=== PATIENT | male | born 1955 | race American Indian/Alaskan Native ===

== ENCOUNTER 2017-01-29 18:25 | Emergency (ER) | payer OTHER ==
--- NOTE | 2017-01-29 20:52 | EDM.PDOC ---
ED HPI GI/ABDOMINAL - General Chief Complaint: Abdominal Pain Stated Complaint: [facility] REF FOR CT SCAN; [phone] Time Seen by Provider: 01/29/17 20:48 Source of Information: Reports: Patient History Limitations: Reports: No limitations - History of Present Illness INITIAL COMMENTS - FREE TEXT/NARRATIVE: 2 weeks h/o RUQ right side pain on off with nausea everytime he eats. saw Dr Jeffries who ordered some labs but were sent-out tests then told to get labs @ [facility] which he did but was ref' here for CAT. - Related Data Allergies/ADRs: Allergies Allergy/AdvReac Type Severity Reaction Status Date / Time No Known Allergies Allergy Verified 01/29/17 19:32 Home Meds: Home Meds Ezetimibe [Zetia] 1 tab PO DAILY 06/30/15 [History] Metoprolol Tartrate 100 mg PO BID 06/30/15 [History] Pioglitazone [Actos] 45 mg PO DAILY 06/30/15 [History] Ramipril [Altace] 1 tab PO BID 06/30/15 [History] Triamterene/Hydrochlorothiazid [Triamterene-HCTZ 37.5-25 MG] 1 tab PO DAILY [History] Warfarin [Coumadin] 1 tab PO DAILY 06/30/15 [History] atorvaSTATin Calcium [Atorvastatin Calcium] 1 tab PO DAILY 06/30/15 [History] glipiZIDE [Glipizide] 1 tab PO BID 06/30/15 [History] metFORMIN [Glucophage] 1 tab PO BID 06/30/15 [History] Aspirin [Adult Low Dose Aspirin EC] 1 tab PO DAILY 01/29/17 [History] Cholecalciferol (Vitamin D3) [Vitamin D3] 2 tab PO DAILY 01/29/17 [History] Fenofibric Acid (Choline) [Fenofibric Acid] 1 cap PO DAILY 01/29/17 [History] Multivitamin [Daily Multiple Vitamin] 1 tab PO DAILY 01/29/17 [History] amLODIPine [Norvasc] 1 tab PO BID 01/29/17 [History] Past Medical History Cardiovascular History: Reports: Aneurysm, Heart valve replacement, High cholesterol, Hypertension, Pacemaker Endocrine/Metabolic History: Reports: Diabetes, type II Hematologic History: Reports: Anticoagulation therapy - Past Surgical History Cardiovascular Surgical History: Reports: Aneurysm, Valve replacement GI Surgical History: Reports: Appendectomy Musculoskeletal Surgical History: Reports: Other (see below) Other Musculoskeletal Surgeries/Procedures:: right knee surgery Social & Family History - Family History Family Medical History: Noncontributory - Tobacco Use Smoking Status *Q: Former Smoker Years of Tobacco use: 40 Used Tobacco, but Quit: No Month Tobacco Last Used: june Second Hand Smoke Exposure: No - Caffeine Use Caffeine Use: Reports: Coffee, Soda - Recreational Drug Use Recreational Drug Use: No ED ROS GENERAL - Review of Systems Review Of Systems: ROS reveals no pertinent complaints other than HPI. ED EXAM, GI/ABD - Physical Exam Exam: See Below Exam Limited By: Uncooperative General Appearance: alert, mild distress, other (distraught) Ears: hearing grossly normal Throat/Mouth: Normal voice, No airway compromise Head: atraumatic Neck: non-tender, full range of motion Respiratory/Chest: no respiratory distress Cardiovascular: regular rate, rhythm GI/Abdominal: soft, hyperactive bowel sounds, tenderness, other (minimal discomfort at right side). No: distention, guarding, rebound, rigidity, mass Neurological: alert, oriented, normal cognition, normal gait, no motor/sensory deficits Psychiatric: normal affect, normal mood Skin Exam: Warm, Dry Lymphatic: no adenopathy Course - Vital Signs Last Recorded V/S: Last Vital Signs Temp 35.8 C 01/29/17 21:44 Pulse 60 01/29/17 21:44 Resp 18 01/29/17 21:44 BP 142/56 H 01/29/17 21:44 Pulse Ox 99 01/29/17 21:44 - Orders/Labs/Meds Orders: Active Orders 24 hr Category Date Time Status Piperacillin/Tazobactam [Zosyn] 3.375 gm Med 01/29/17 23:16 Ordered Sodium Chloride 0.9% [Normal Saline] 100 ml IV ONETIME Medication Orders Piperacillin Sod/Tazobactam (Sod 3.375 gm/ Sodium Chloride) 100 mls @ 200 mls/ hr IV ONETIME ONE Stop: 01/29/17 23:45 Labs: Laboratory Tests 01/29/17 01/29/17 01/29/17 Range/Units 20:45 20:45 20:45 WBC 9.7 (5.0-10.0) 10^3/uL RBC 3.96 L (4.6-6.2) 10^6/uL Hgb 11.6 L (14.0-18.0) g/dL Hct 35.9 L (40.0-54.0) % MCV 90.7 (80-100) fL MCH 29.3 (27.0-34.0) pg MCHC 32.3 L (33.0-35.0) g/dL Plt Count 403 (150-450) 10^3/uL Neut % (Auto) 72.3 (42.2-75.2) % Lymph % (Auto) 15.5 L (20.5-50.1) % [place] % (Auto) 10.5 H (2-8) % Eos % (Auto) 1.4 (1.0-3.0) % Baso % (Auto) 0.3 (0.0-1.0) % PT 90.8 H (9.0-12.0) SEC INR 9.0 H* (0.9-1.2) Sodium 130 L (135-145) mmol/L Potassium 4.1 (3.6-5.0) mmol/L Chloride 97 L (101-111) mmol/L Carbon Dioxide 25.0 (21.0-31.0) mmol/L Anion Gap 12.1 BUN 20 H (7-18) mg/dL Creatinine 1.5 H (0.6-1.3) mg/dL Est Cr Clr Drug Dosing 51.72 mL/min Estimated GFR (MDRD) 48 BUN/Creatinine Ratio 13.33 Glucose 377 H (74-105) mg/dL Calcium 9.3 (8.4-10.2) mg/dl Total Bilirubin 0.4 (0.2-1.0) mg/dL AST 21 (10-42) IU/L ALT 18 (10-60) IU/L Alkaline Phosphatase 66 (42-121) IU/L Total Protein 7.2 (6.7-8.2) g/dl Albumin 3.2 (3.2-5.5) g/dl Globulin 4.0 Albumin/Globulin Ratio 0.80 Amylase 51 (28-100) U/L Lipase 33 (22-51) U/L Urine Color (YELLOW) Urine Appearance (CLEAR) Urine pH (5.0-9.0) Ur Specific [place] (1.005-1.030) Urine Protein (NEGATIVE) Urine Glucose (UA) (NEGATIVE) Urine Ketones (NEGATIVE) Urine Occult Blood (NEGATIVE) Urine Nitrite (NEGATIVE) Urine Bilirubin (NEGATIVE) Urine Urobilinogen (0.2-1.0) mg/dL Ur Leukocyte Esterase (NEGATIVE) Urine RBC /HPF Urine WBC (0-5/HPF) /HPF Ur Epithelial Cells /HPF Amorphous Sediment (0/HPF) /HPF Urine Bacteria (0-FEW/HPF) /HPF Urine Mucus /LPF 01/29/17 Range/Units 21:15 WBC (5.0-10.0) 10^3/uL RBC (4.6-6.2) 10^6/uL Hgb (14.0-18.0) g/dL Hct (40.0-54.0) % MCV (80-100) fL MCH (27.0-34.0) pg MCHC (33.0-35.0) g/dL Plt Count (150-450) 10^3/uL Neut % (Auto) (42.2-75.2) % Lymph % (Auto) (20.5-50.1) % [place] % (Auto) (2-8) % Eos % (Auto) (1.0-3.0) % Baso % (Auto) (0.0-1.0) % PT (9.0-12.0) SEC INR (0.9-1.2) Sodium (135-145) mmol/L Potassium (3.6-5.0) mmol/L Chloride (101-111) mmol/L Carbon Dioxide (21.0-31.0) mmol/L Anion Gap BUN (7-18) mg/dL Creatinine (0.6-1.3) mg/dL Est Cr Clr Drug Dosing mL/min Estimated GFR (MDRD) BUN/Creatinine Ratio Glucose (74-105) mg/dL Calcium (8.4-10.2) mg/dl Total Bilirubin (0.2-1.0) mg/dL AST (10-42) IU/L ALT (10-60) IU/L Alkaline Phosphatase (42-121) IU/L Total Protein (6.7-8.2) g/dl Albumin (3.2-5.5) g/dl Globulin Albumin/Globulin Ratio Amylase (28-100) U/L Lipase (22-51) U/L Urine Color Yellow (YELLOW) Urine Appearance Slightly cloudy (CLEAR) Urine pH 5.0 (5.0-9.0) Ur Specific [place] 1.015 (1.005-1.030) Urine Protein 100 H (NEGATIVE) Urine Glucose (UA) 500 H (NEGATIVE) Urine Ketones Negative (NEGATIVE) Urine Occult Blood Moderate H (NEGATIVE) Urine Nitrite Negative (NEGATIVE) Urine Bilirubin Negative (NEGATIVE) Urine Urobilinogen 0.2 (0.2-1.0) mg/dL Ur Leukocyte Esterase Negative (NEGATIVE) Urine RBC 5-10 H /HPF Urine WBC 0-5 (0-5/HPF) /HPF Ur Epithelial Cells Rare /HPF Amorphous Sediment Few (0/HPF) /HPF Urine Bacteria Rare (0-FEW/HPF) /HPF Urine Mucus Few H /LPF Meds: Medications Generic Name Dose Route Start Last Admin Trade Name Freq PRN Reason Stop Dose Admin Piperacillin Sod/Tazobactam 100 mls @ 200 mls/hr 01/29/17 23:16 Sod 3.375 gm/ Sodium Chloride IV 01/29/17 23:45 ONETIME ONE - Re-Assessments/Exams Free Text/Narrative Re-Assessment/Exam: 01/29/17 23:17 results discussed with Pt and case discussed with Dr Vora @ who kindly accepted Pt. Departure - Departure Time of Disposition: 23:18 Disposition: DC/Tfer to Acute Hospital 02 Condition: good Clinical Impression: Intra-abdominal abscess, Elevated INR Forms: Interfacility Transfer EMTALA - My Orders Last 24 Hours: My Active Orders 01/29/17 23:16 Piperacillin/Tazobactam [Zosyn] 3.375 gm Sodium Chloride 0.9% [Normal Saline] 100 ml IV ONETIME - Assessment/Plan Last 24 Hours: My Active Orders 01/29/17 23:16 Piperacillin/Tazobactam [Zosyn] 3.375 gm Sodium Chloride 0.9% [Normal Saline] 100 ml IV ONETIME
[2017-01-29] MEDS ORDERED: Piperacillin/Tazobactam 3.375 GM in Sodium Chloride 0.9% 100 ML IV ONE (23:16)
[2017-01-29 23:54] VITALS: BP 150/63
== END 2017-01-29 23:45 ==
LOC: DL.ED 18:25
DX: K65.1 Peritoneal abscess (principal); E11.9 Type 2 diabetes mellitus without complications; E78.00 Pure hypercholesterolemia, unspecified; Z87.891 Personal history of nicotine dependence; Z79.899 Other long term (current) drug therapy
CPT/HCPCS: 36415; 74176; 80053; 81001; 82150; 83690; 85025; 85610; 96365; 99285; J2543; J7050

== ENCOUNTER 2017-02-22 21:50 | Emergency (ER) | payer OTHER ==
[2017-02-22] MEDS ORDERED: Ondansetron 4 MG/2 ML SDV IV ONE (22:20)
[2017-02-22] MEDS ORDERED: HYDROmorphone 1 MG/ML Syringe IVPUSH ONE ×2 (22:21→23:38)
[2017-02-22] MEDS ORDERED: Iopamidol 612 MG/ML 75 ML Bottle IVPUSH ONE (23:14)
[2017-02-22] MEDS ORDERED: Sodium Chloride 0.9% 1,000 ML IV ONE (23:38)
[2017-02-23] MEDS ORDERED: Piperacillin/Tazobactam 3.375 GM in Sodium Chloride 0.9% 100 ML IV ONE (00:15)
[2017-02-23] MEDS ORDERED: fentaNYL 100 MCG/2 ML SDV IVPUSH ONE (00:36)
--- NOTE | 2017-02-23 00:47 | EDM.PDOC ---
ED HPI GI/ABDOMINAL - General Chief Complaint: Abdominal Pain Stated Complaint: STOMACH Time Seen by Provider: 02/22/17 21:55 Source of Information: Reports: Patient History Limitations: Reports: No limitations - History of Present Illness INITIAL COMMENTS - FREE TEXT/NARRATIVE: c/o lower abdominal pain greater right than left at present, similar on 01/29 and pain more on left side. Started as ache this am, more severe this antwan, rated 7/10/. Last BM yesterday, soft yellow, nausea no vomiting, feels bloated. pain constaant with shooting pains at times. Hx elevated INR 9.4 with last tx. Last check one week ago 2.x. Noted coumadin 5mg daily last took this am. Was discharged home on antibiotic and completed medication. Location: generalized (lower) Quality: Reports: ache, fullness, stabbing Severity: severe Worsens with: Reports: palpation, other (movement) Associated Symptoms: Reports: nausea/vomiting - Related Data Allergies/ADRs: Allergies Allergy/AdvReac Type Severity Reaction Status Date / Time No Known Allergies Allergy Verified 02/22/17 21:59 Home Meds: Home Meds Ezetimibe [Zetia] 1 tab PO DAILY 06/30/15 [History] Metoprolol Tartrate 100 mg PO BID 06/30/15 [History] Pioglitazone [Actos] 45 mg PO DAILY 06/30/15 [History] Ramipril [Altace] 1 tab PO BID 06/30/15 [History] Triamterene/Hydrochlorothiazid [Triamterene-HCTZ 37.5-25 MG] 1 tab PO DAILY [History] Warfarin [Coumadin] 1 tab PO DAILY 06/30/15 [History] atorvaSTATin Calcium [Atorvastatin Calcium] 1 tab PO DAILY 06/30/15 [History] glipiZIDE [Glipizide] 1 tab PO BID 06/30/15 [History] metFORMIN [Glucophage] 1 tab PO BID 06/30/15 [History] Aspirin [Adult Low Dose Aspirin EC] 1 tab PO DAILY 01/29/17 [History] Cholecalciferol (Vitamin D3) [Vitamin D3] 2 tab PO DAILY 01/29/17 [History] Fenofibric Acid (Choline) [Fenofibric Acid] 1 cap PO DAILY 01/29/17 [History] Multivitamin [Daily Multiple Vitamin] 1 tab PO DAILY 01/29/17 [History] amLODIPine [Norvasc] 1 tab PO BID 01/29/17 [History] Past Medical History HEENT History: Reports: Impaired vision Cardiovascular History: Reports: Aneurysm, Heart valve replacement, High cholesterol, Hypertension, Pacemaker Endocrine/Metabolic History: Reports: Diabetes, type II Hematologic History: Reports: Anticoagulation therapy - Past Surgical History Cardiovascular Surgical History: Reports: Aneurysm, Valve replacement GI Surgical History: Reports: Appendectomy Musculoskeletal Surgical History: Reports: Other (see below) Other Musculoskeletal Surgeries/Procedures:: right knee surgery Social & Family History - Family History Family Medical History: Noncontributory - Tobacco Use Smoking Status *Q: Former Smoker Years of Tobacco use: 40 Used Tobacco, but Quit: Yes Month Tobacco Last Used: 4 Second Hand Smoke Exposure: No - Caffeine Use Caffeine Use: Reports: Coffee - Recreational Drug Use Recreational Drug Use: No ED ROS GENERAL - Review of Systems Review Of Systems: See Below Constitutional: Reports: no symptoms HEENT: Reports: No symptoms Respiratory: Reports: No Symptoms Cardiovascular: Reports: No symptoms Endocrine: Reports: no symptoms GI/Abdominal: Reports: Abdominal pain, Distension, Nausea. Denies: Black stool , Bloody stool, Diarrhea, Vomiting : Reports: no symptoms Musculoskeletal: Reports: no symptoms Skin: Reports: no symptoms Neurological: Reports: No Symptoms ED EXAM, GI/ABD - Physical Exam Exam: See Below Exam Limited By: No limitations General Appearance: alert, moderate distress Eyes: bilateral: EOMI Ears: normal external exam Nose: normal inspection Throat/Mouth: Normal inspection, Normal lips, Normal oropharynx Head: atraumatic, normocephalic Neck: normal inspection Respiratory/Chest: no respiratory distress, lungs clear, normal breath sounds Cardiovascular: normal peripheral pulses, regular rate, rhythm GI/Abdominal: soft, hypoactive bowel sounds, tenderness, guarding, hernia ( right mid abdomen). No: tympanic bowel sounds, rebound Back Exam: full range of motion Extremities: normal inspection Neurological: alert, oriented, normal cognition, no motor/sensory deficits Psychiatric: normal affect, normal mood Skin Exam: Warm, Dry, Intact, Normal color, No rash Course - Vital Signs Last Recorded V/S: Last Vital Signs Temp 99.7 F 02/23/17 00:54 Pulse 70 02/23/17 00:54 Resp 20 02/23/17 00:54 BP 122/48 L 02/23/17 00:54 Pulse Ox 96 02/23/17 00:54 - Orders/Labs/Meds Labs: Laboratory Tests 02/22/17 02/22/17 02/22/17 Range/Units 22:30 22:32 22:32 WBC 14.9 H (5.0-10.0) 10^3/uL RBC 3.86 L (4.6-6.2) 10^6/uL Hgb 11.6 L (14.0-18.0) g/dL Hct 35.7 L (40.0-54.0) % MCV 92.5 (80-100) fL MCH 30.1 (27.0-34.0) pg MCHC 32.5 L (33.0-35.0) g/dL Plt Count 315 (150-450) 10^3/uL Neut % (Auto) 86.5 H (42.2-75.2) % Lymph % (Auto) 8.0 L (20.5-50.1) % [place] % (Auto) 4.9 (2-8) % Eos % (Auto) 0.5 L (1.0-3.0) % Baso % (Auto) 0.1 (0.0-1.0) % PT 67.2 H (9.0-12.0) SEC INR 6.7 H* (0.9-1.2) Sodium (135-145) mmol/L Potassium (3.6-5.0) mmol/L Chloride (101-111) mmol/L Carbon Dioxide (21.0-31.0) mmol/L Anion Gap BUN (7-18) mg/dL Creatinine (0.6-1.3) mg/dL Est Cr Clr Drug Dosing mL/min Estimated GFR (MDRD) BUN/Creatinine Ratio Glucose (74-105) mg/dL Lactic Acid (0.5-2.2) mmol/L Calcium (8.4-10.2) mg/dl Total Bilirubin (0.2-1.0) mg/dL AST (10-42) IU/L ALT (10-60) IU/L Alkaline Phosphatase (42-121) IU/L C-Reactive Protein (0.0-1.3) mg/dL Total Protein (6.7-8.2) g/dl Albumin (3.2-5.5) g/dl Globulin Albumin/Globulin Ratio Amylase (28-100) U/L Lipase (22-51) U/L Urine Color Yellow (YELLOW) Urine Appearance Clear (CLEAR) Urine pH 5.0 (5.0-9.0) Ur Specific [place] 1.025 (1.005-1.030) Urine Protein >=300 H (NEGATIVE) Urine Glucose (UA) Negative (NEGATIVE) Urine Ketones Negative (NEGATIVE) Urine Occult Blood Moderate H (NEGATIVE) Urine Nitrite Negative (NEGATIVE) Urine Bilirubin Negative (NEGATIVE) Urine Urobilinogen 0.2 (0.2-1.0) mg/dL Ur Leukocyte Esterase Negative (NEGATIVE) Urine RBC 5-10 H /HPF Urine WBC 0-5 (0-5/HPF) /HPF Ur Epithelial Cells Rare /HPF Amorphous Sediment Few (0/HPF) /HPF Urine Bacteria Few (0-FEW/HPF) /HPF 02/22/17 02/22/17 02/22/17 Range/Units 22:32 22:32 22:32 WBC (5.0-10.0) 10^3/uL RBC (4.6-6.2) 10^6/uL Hgb (14.0-18.0) g/dL Hct (40.0-54.0) % MCV (80-100) fL MCH (27.0-34.0) pg MCHC (33.0-35.0) g/dL Plt Count (150-450) 10^3/uL Neut % (Auto) (42.2-75.2) % Lymph % (Auto) (20.5-50.1) % [place] % (Auto) (2-8) % Eos % (Auto) (1.0-3.0) % Baso % (Auto) (0.0-1.0) % PT (9.0-12.0) SEC INR (0.9-1.2) Sodium 135 (135-145) mmol/L Potassium 4.2 (3.6-5.0) mmol/L Chloride 105 (101-111) mmol/L Carbon Dioxide 22.0 (21.0-31.0) mmol/L Anion Gap 12.2 BUN 19 H (7-18) mg/dL Creatinine 1.3 (0.6-1.3) mg/dL Est Cr Clr Drug Dosing 57.73 mL/min Estimated GFR (MDRD) 56 BUN/Creatinine Ratio 14.61 Glucose 158 H (74-105) mg/dL Lactic Acid 1.7 (0.5-2.2) mmol/L Calcium 9.4 (8.4-10.2) mg/dl Total Bilirubin 0.6 (0.2-1.0) mg/dL AST 29 (10-42) IU/L ALT 22 (10-60) IU/L Alkaline Phosphatase 43 (42-121) IU/L C-Reactive Protein < 0.5 (0.0-1.3) mg/dL Total Protein 7.1 (6.7-8.2) g/dl Albumin 3.8 (3.2-5.5) g/dl Globulin 3.3 Albumin/Globulin Ratio 1.15 Amylase 76 (28-100) U/L Lipase 45 (22-51) U/L Urine Color (YELLOW) Urine Appearance (CLEAR) Urine pH (5.0-9.0) Ur Specific [place] (1.005-1.030) Urine Protein (NEGATIVE) Urine Glucose (UA) (NEGATIVE) Urine Ketones (NEGATIVE) Urine Occult Blood (NEGATIVE) Urine Nitrite (NEGATIVE) Urine Bilirubin (NEGATIVE) Urine Urobilinogen (0.2-1.0) mg/dL Ur Leukocyte Esterase (NEGATIVE) Urine RBC /HPF Urine WBC (0-5/HPF) /HPF Ur Epithelial Cells /HPF Amorphous Sediment (0/HPF) /HPF Urine Bacteria (0-FEW/HPF) /HPF Meds: Medications Discontinued Medications Generic Name Dose Route Start Last Admin Trade Name Gilda PRN Reason Stop Dose Admin Fentanyl 50 mcg 02/23/17 00:36 02/23/17 00:51 Sublimaze IVPUSH 02/23/17 00:37 50 mcg ONETIME ONE Administration Hydromorphone HCl 1 mg 02/22/17 22:21 02/22/17 22:26 Dilaudid IVPUSH 02/22/17 22:22 1 mg ONETIME ONE Administration Hydromorphone HCl 1 mg 02/22/17 23:38 02/22/17 23:42 Dilaudid IVPUSH 02/22/17 23:39 1 mg ONETIME ONE Administration Sodium Chloride 1,000 mls @ 500 mls/hr 02/22/17 23:38 02/22/17 23:53 Normal Saline IV 02/23/17 01:37 500 mls/hr .BOLUS ONE Administration Piperacillin Sod/Tazobactam 100 mls @ 200 mls/hr 02/23/17 00:15 02/23/17 00: 27 Sod 3.375 gm/ Sodium Chloride IV 02/23/17 00:44 200 mls/hr ONETIME ONE Administration Vancomycin HCl 1.25 gm/ Sodium 250 mls @ 167 mls/hr 02/23/17 00:28 02/23/17 01:01 Chloride IV 02/23/17 01:57 167 mls/hr ONETIME ONE Administration Iopamidol 75 ml 02/22/17 23:14 02/22/17 23:20 Isovue-300 (61%) IVPUSH 02/22/17 23:15 75 ml ONETIME ONE Administration Ondansetron HCl 4 mg 02/22/17 22:20 02/22/17 22:26 Zofran IV 02/22/17 22:21 4 mg ONETIME ONE Administration - Radiology Interpretation Free Text/Narrative:: CT mesenteric abscess, smaller 2cm in comparison to previous on 01/29 of 2.5 cm - Re-Assessments/Exams Free Text/Narrative Re-Assessment/Exam: 02/23/17 00:49 minimal improvement of pain with 2mg dilaudid. No vomiting. Dr. Guzman TC consult regarding patient, accepting of transfer for further management mesenteric abscess and elevated INR. Zosyn and vancomycin prior to tx. Departure - Departure Time of Disposition: 01:10 Disposition: DC/Tfer to Acute Hospital 02 Condition: fair Clinical Impression: Mesenteric abscess, Elevated INR, Chronic anticoagulation Abdominal pain Qualifiers: Abdominal location: lower abdomen, unspecified Qualified Code(s): R10.30 - Lower abdominal pain, unspecified Referrals: Avel Farrell [Primary Care Provider] - Forms: ED Department Discharge
[2017-02-23 00:54] VITALS: BP 122/48
== END 2017-02-23 01:10 ==
LOC: DL.ED 21:50
DX: K65.1 Peritoneal abscess (principal); R79.1 Abnormal coagulation profile; R10.30 Lower abdominal pain, unspecified; E78.00 Pure hypercholesterolemia, unspecified; E11.9 Type 2 diabetes mellitus without complications; Z87.891 Personal history of nicotine dependence; Z79.01 Long term (current) use of anticoagulants; Z79.82 Long term (current) use of aspirin; Z79.899 Other long term (current) drug therapy; Z95.2 Presence of prosthetic heart valve
CPT/HCPCS: 36415; 74177; 80053; 81001; 82150; 83605; 83690; 85025; 85610; 86140; 87040; 96361; 96365; 96375; 99285; J1170; J2405; J2543; J3010; J3370; J7030; J7050; Q9967

== ENCOUNTER 2020-03-24 14:30 | Emergency (ER) | payer BC, OTHER ==
[2020-03-24 15:09] VITALS: BP 152/64; PULSE 62
--- NOTE | 2020-03-24 15:35 | EDM.PDOC ---
Scribed by Tamra Reilly 03/24/20 1510 for Lucy Martinez NP ED HPI GENERAL MEDICAL PROBLEM - General Chief Complaint: General Stated Complaint: refill on meds Time Seen by Provider: 03/24/20 15:03 Source of Information: Reports: Patient, RN, RN Notes Reviewed History Limitations: Reports: No Limitations - History of Present Illness INITIAL COMMENTS - FREE TEXT/NARRATIVE: Patient presents to ER with complaint of running out of his Coumadin. He ran out on . Had INR drawn on 03/21/20 and it was 2.4. Refill was sent to [facility]. The patient forgot to pick it up. He has been on Coumadin since 1999 when he had a valve replacement. Onset: Gradual Severity: Mild Improves with: Reports: None Worsens with: Reports: None Associated Symptoms: Reports: No Other Symptoms - Related Data Allergies Allergy/AdvReac Type Severity Reaction Status Date / Time No Known Allergies Allergy Verified 03/24/20 15:02 Home Meds: Home Meds Ezetimibe [Zetia] 10 mg PO DAILY 06/30/15 [History] Metoprolol Tartrate 50 mg PO DAILY 06/30/15 [History] Pioglitazone [Actos] 45 mg PO DAILY 06/30/15 [History] Ramipril [Altace] 10 mg PO BID 06/30/15 [History] Triamterene/Hydrochlorothiazid [Triamterene-HCTZ 37.5-25 MG] 1 tab PO DAILY [History] Warfarin [Coumadin] 6 mg PO DAILY 06/30/15 [History] atorvaSTATin Calcium [Atorvastatin Calcium] 80 mg PO DAILY 06/30/15 [History] glipiZIDE [Glipizide] 10 tab PO BID 06/30/15 [History] metFORMIN [Glucophage] 1,000 tab PO BID 06/30/15 [History] Aspirin [Adult Low Dose Aspirin EC] 81 mg PO DAILY 01/29/17 [History] Cholecalciferol (Vitamin D3) [Vitamin D3] 2 tab PO DAILY 01/29/17 [History] Fenofibric Acid (Choline) [Fenofibric Acid] 1 cap PO DAILY 01/29/17 [History] Multivitamin [Daily Multiple Vitamin] 1 tab PO DAILY 01/29/17 [History] amLODIPine [Norvasc] 5 mg PO BID 01/29/17 [History] Alogliptin Benzoate [Alogliptin] 25 mg PO DAILY 03/24/20 [History] Past Medical History HEENT History: Reports: Impaired Vision Cardiovascular History: Reports: Aneurysm, Heart Valve Replacement, High Cholesterol, Hypertension, Pacemaker Endocrine/Metabolic History: Reports: Diabetes, Type II Hematologic History: Reports: Anticoagulation Therapy - Past Surgical History Cardiovascular Surgical History: Reports: Aneurysm, Valve Replacement GI Surgical History: Reports: Appendectomy Musculoskeletal Surgical History: Reports: Other (See Below) Social & Family History - Family History Family Medical History: Noncontributory - Caffeine Use Caffeine Use: Reports: Coffee ED ROS GENERAL - Review of Systems Review Of Systems: Comprehensive ROS is negative, except as noted in HPI. ED EXAM, GENERAL - Physical Exam Exam: See Below Exam Limited By: No Limitations General Appearance: Alert, WD/WN, No Apparent Distress Eye Exam: Bilateral Eye: EOMI, Normal Inspection, PERRL Ears: Normal External Exam, Normal Canal, Hearing Grossly Normal, Normal TMs Nose: Normal Inspection, Normal Mucosa, No Blood Throat/Mouth: Normal Inspection, Normal Lips, Normal Teeth, Normal Gums, Normal Oropharynx, Normal Voice, No Airway Compromise Head: Atraumatic, Normocephalic Neck: Normal Inspection, Supple, Non-Tender, Full Range of Motion Respiratory/Chest: No Respiratory Distress, Lungs Clear, Normal Breath Sounds, No Accessory Muscle Use, Chest Non-Tender Cardiovascular: Other (valve "click") GI/Abdominal: Normal Bowel Sounds, Soft, Non-Tender, No Organomegaly, No Distention, No Abnormal Bruit, No Mass (Male) Exam: Deferred Rectal (Males) Exam: Deferred Back Exam: Normal Inspection, Full Range of Motion, NT Extremities: Normal Inspection, Normal Range of Motion, Non-Tender, Normal Capillary Refill, No Pedal Edema Neurological: Alert, Oriented, CN II-XII Intact, Normal Cognition, Normal Gait, Normal Reflexes, No Motor/Sensory Deficits Psychiatric: Normal Affect, Normal Mood Skin Exam: Warm, Dry, Intact, Normal Color, No Rash Lymphatic: No Adenopathy Course - Vital Signs Last Recorded V/S: Last Vital Signs Temp 97.5 F 03/24/20 15:00 Pulse 62 03/24/20 15:00 Resp 16 03/24/20 15:00 BP 152/64 H 03/24/20 15:00 Pulse Ox 97 03/24/20 15:00 Departure - Departure Time of Disposition: 15:09 Disposition: Home, Self-Care 01 Condition: Good Clinical Impression: Anticoagulant long-term use - Discharge Information *PRESCRIPTION DRUG MONITORING PROGRAM REVIEWED*: No *COPY OF PRESCRIPTION DRUG MONITORING REPORT IN PATIENT ABIODUN: No Instructions: Vitamin K Foods and Warfarin, Warfarin Coagulopathy Forms: ED Department Discharge Additional Instructions: Pick prescription when able next week Take medication as prescribed by your primary care provider Sepsis Event Note - Focused Exam Vital Signs: Vital Signs Temp Pulse Resp BP Pulse Ox 03/24/20 15:00 97.5 F 62 16 152/64 H 97 Date Exam was Performed: 03/24/20 Time Exam was Performed: 15:35 I have read and agree with the documentation that has been completed regarding this visit. By signing this record, I attest that the documentation was completed in my physical presence and is an accurate record of the encounter.
== END 2020-03-24 15:13 | disposition home or self-care (01) ==
LOC: DL.ED 14:30
DX: Z76.0 Encounter for issue of repeat prescription (principal); E78.00 Pure hypercholesterolemia, unspecified; Z95.0 Presence of cardiac pacemaker; E11.9 Type 2 diabetes mellitus without complications; Z79.899 Other long term (current) drug therapy; Z79.01 Long term (current) use of anticoagulants; Z79.84 Long term (current) use of oral hypoglycemic drugs; Z79.82 Long term (current) use of aspirin
CPT/HCPCS: 99281

== ENCOUNTER 2021-07-25 20:46 | Emergency (ER) | payer BC, OTHER ==
[2021-07-25] MEDS ORDERED: Acetaminophen 325 MG Tab PO ONE (21:15)
[2021-07-25] MEDS ORDERED: amLODIPine 5 MG Tab PO ONE (21:16)
[2021-07-25] MEDS ORDERED: Metoprolol Tartrate 50 MG Tab PO ONE (21:16)
--- NOTE | 2021-07-25 21:20 | EDM.PDOC ---
ED HPI GENERAL MEDICAL PROBLEM - General Chief Complaint: General Stated Complaint: [facility] Time Seen by Provider: 07/25/21 21:17 Source of Information: Reports: Patient, EMS, RN, RN Notes Reviewed History Limitations: Reports: No Limitations - History of Present Illness INITIAL COMMENTS - FREE TEXT/NARRATIVE: Jim is a 65 y/o who presents to the ED via [facility] with complaints of fever, chills, headache, cough, shortness of breath, and malaise. The patient states his symptoms began two days ago and have progressively worsened in that time. He reports potential COVID exposure three days ago at a birthday libertarian; he has been fully vaccinated for COVID. He denies sore throat, nasal congestion, nausea, vomiting, abdominal pain, dysuria, diarrhea, or constipation. The patient states he has not been taking his daily medications, including antihypertensives, blood thinners, or antidiabetics, as he has not felt well. He has taken no medications or performed any supportive cares for his symptoms. The patient denies tobacco, alcohol, or recreational drug use. Chest Pain Score (Numeric/FACES): 6 - Related Data Allergies Allergy/AdvReac Type Severity Reaction Status Date / Time No Known Allergies Allergy Verified 07/25/21 21:09 Home Meds: Home Meds Ezetimibe [Zetia] 10 mg PO DAILY 06/30/15 [History] Metoprolol Tartrate 50 mg PO DAILY 06/30/15 [History] Pioglitazone [Actos] 45 mg PO DAILY 06/30/15 [History] Ramipril [Altace] 10 mg PO BID 06/30/15 [History] Triamterene/Hydrochlorothiazid [Triamterene-HCTZ 37.5-25 MG] 1 tab PO DAILY 06/30/15 [History] Warfarin [Coumadin] 6 mg PO DAILY 06/30/15 [History] atorvaSTATin Calcium [Atorvastatin Calcium] 80 mg PO DAILY 06/30/15 [History] glipiZIDE [Glipizide] 10 tab PO BID 06/30/15 [History] metFORMIN [Glucophage] 1,000 tab PO DAILY 06/30/15 [History] Aspirin [Adult Low Dose Aspirin EC] 81 mg PO DAILY 01/29/17 [History] Cholecalciferol (Vitamin D3) [Vitamin D3] 2 tab PO DAILY 01/29/17 [History] Fenofibric Acid (Choline) [Fenofibric Acid] 1 cap PO DAILY 01/29/17 [History] Multivitamin [Daily Multiple Vitamin] 1 tab PO DAILY 01/29/17 [History] amLODIPine [Norvasc] 5 mg PO BID 01/29/17 [History] Alogliptin Benzoate [Alogliptin] 25 mg PO DAILY 03/24/20 [History] Past Medical History HEENT History: Reports: Impaired Vision Cardiovascular History: Reports: Aneurysm, Heart Valve Replacement, High Cholesterol, Hypertension, Pacemaker Genitourinary History: Reports: Other (See Below) Other Genitourinary History: stage 3 kidney failure Endocrine/Metabolic History: Reports: Diabetes, Type II Hematologic History: Reports: Anticoagulation Therapy - Past Surgical History Cardiovascular Surgical History: Reports: Aneurysm, Valve Replacement GI Surgical History: Reports: Appendectomy, EGD, Other (See Below) Other GI Surgeries/Procedures: bowel resection Musculoskeletal Surgical History: Reports: Other (See Below) Other Musculoskeletal Surgeries/Procedures:: right knee surgery Social & Family History - Family History Family Medical History: No Pertinent Family History - Tobacco Use Tobacco Use Status *Q: Never Tobacco User Second Hand Smoke Exposure: No - Caffeine Use Caffeine Use: Reports: Coffee - Recreational Drug Use Recreational Drug Use: No ED ROS GENERAL - Review of Systems Review Of Systems: Comprehensive ROS is negative, except as noted in HPI. ED EXAM, GENERAL - Physical Exam Exam: See Below Exam Limited By: No Limitations General Appearance: Alert, No Apparent Distress, Obese, Other (Ill-appearing male) Eye Exam: Bilateral Eye: EOMI, Normal Inspection, PERRL (3mm) Ears: Normal External Exam, Normal Canal, Hearing Grossly Normal, Normal TMs Ear Exam: Bilateral Ear: Auricle Normal, Canal Normal, TM normal Nose: Normal Inspection, Normal Mucosa, No Blood Throat/Mouth: Normal Inspection, Normal Oropharynx, Normal Voice, No Airway Co mpromise Head: Atraumatic, Normocephalic Neck: Normal Inspection, Supple, Non-Tender, Full Range of Motion. No: Lymphadenopathy (L), Lymphadenopathy (R) Respiratory/Chest: No Respiratory Distress, Rhonchi. No: Crackles, Rales, Wheezing, Stridor Cardiovascular: Normal Peripheral Pulses, Regular Rate, Rhythm, No Gallop, No JVD, No Murmur, No Rub, Tachycardia. No: No Edema Peripheral Pulses: 2+: Radial (L), Radial (R) GI/Abdominal: Normal Bowel Sounds, Soft, Non-Tender, No Distention, No Abnormal Bruit, No Mass, Pelvis Stable. No: Guarding, Rigid, Rebound (Male) Exam: Deferred Rectal (Males) Exam: Deferred Back Exam: Normal Inspection, Full Range of Motion Extremities: Normal Inspection, Normal Range of Motion, Normal Capillary Refill, Pedal Edema (+1 pitting, bilaterally) Neurological: Alert, Oriented, CN II-XII Intact, Normal Cognition, No Motor/Sensory Deficits Psychiatric: Normal Affect, Normal Mood Skin Exam: Warm, Dry, Intact, Normal Color, No Rash. No: Cyanosis, Jaundice, Mottled, Pallor Lymphatic: No Adenopathy #1 Interpretation EKG Date: 07/25/21 Time: 22:20 Rhythm: Other (V-paced, atrial sensed rhythm) Rate (Beats/Min): 81 [place]vel: Normal QRS: RBBB (0.195) ST-T: Normal QT: Prolonged (0.574) Comparison: NA - No Prior EKG EKG Interpretation Comments: V-pace, A-sensed rhythm; No evidence of acute myocardial ischemia Course - Vital Signs Last Recorded V/S: Last Vital Signs Temp 99.6 F 07/25/21 22:26 Pulse 79 07/25/21 22:26 Resp 24 H 07/25/21 22:26 BP 145/74 H 07/25/21 22:26 Pulse Ox 95 07/25/21 22:26 - Orders/Labs/Meds Labs: Laboratory Tests 07/25/21 07/25/21 07/25/21 Range/Units 20:45 21:25 21:25 WBC 7.5 (5.0-10.0) 10^3/uL RBC 2.94 L (4.6-6.2) 10^6/uL Hgb 9.3 L D (14.0-18.0) g/dL Hct 29.2 L (40.0-54.0) % MCV 99.3 D (80-100) fL MCH 31.6 (27.0-34.0) pg MCHC 31.8 L (33.0-35.0) g/dL Plt Count 213 D (150-450) 10^3/uL Neut % (Auto) 81.2 H (42.2-75.2) % Lymph % (Auto) 8.4 L (20.5-50.1) % [place] % (Auto) 10.1 H (2-8) % Eos % (Auto) 0.0 L (1.0-3.0) % Baso % (Auto) 0.3 (0.0-1.0) % PT (9.0-12.0) SEC INR (0.9-1.2) APTT (22.0-34.0) SEC D-Dimer, Quantitative (0-400) ng/mL Sodium 134 L (136-145) mmol/L Potassium 3.8 (3.5-5.1) mmol/L Chloride 103 (98-107) mmol/L Carbon Dioxide 22 (21-32) mmol/L Anion Gap 12.8 (7-13) mEq/L BUN 26 H (7-18) mg/dL Creatinine 2.79 H (0.70-1.30) mg/dL Est Cr Clr Drug Dosing 26.40 mL/min Estimated GFR (MDRD) 23 BUN/Creatinine Ratio 9.3 (No establ ref range) Glucose 143 H (70-99) mg/dL Lactic Acid (0.4-2.0) mmol/L Calcium 8.1 L (8.5-10.1) mg/dL Magnesium 1.8 (1.8-2.4) mg/dL Total Bilirubin 0.4 (0.2-1.0) mg/dL AST 36 (15-37) U/L ALT 38 (16-63) U/L Alkaline Phosphatase 85 (46-116) U/L Troponin I High Sens 154 H* (<=76) pg/mL C-Reactive Protein 8.6 H (0.0-0.9) mg/dL B-Natriuretic Peptide 1050 H (0-100) pg/ml Total Protein 5.9 L (6.4-8.2) g/dL Albumin 2.2 L (3.4-5.0) g/dL Globulin 3.7 Albumin/Globulin Ratio 0.59 Urine Color (YELLOW) Urine Appearance (CLEAR) Urine pH (5.0-9.0) Ur Specific Vincent (1.005-1.030) Urine Protein (NEGATIVE) Urine Glucose (UA) (NEGATIVE) Urine Ketones (NEGATIVE) Urine Occult Blood (NEGATIVE) Urine Nitrite (NEGATIVE) Urine Bilirubin (NEGATIVE) Urine Urobilinogen (0.2-1.0) mg/dL Ur Leukocyte Esterase (NEGATIVE) U Hyaline Cast (Auto) Urine RBC (0-5) /HPF Urine WBC (0-5/HPF) /HPF Ur Epithelial Cells (NOT SEEN) /HPF Amorphous Sediment (NOT SEEN) /HPF Urine Bacteria (0-FEW/HPF) /HPF Granular Casts (Auto) Fine Granular Casts (NOT SEEN) /LPF Urine Mucus (NOT SEEN) /LPF Urine Opiates Screen (NEGATIVE) Ur Oxycodone Screen (NEGATIVE) Urine Methadone Screen (NEGATIVE) Ur Barbiturates Screen (NEGATIVE) U Tricyclic Antidepress (NEGATIVE) Ur Phencyclidine Scrn (NEGATIVE) Ur Amphetamine Screen (NEGATIVE) U Methamphetamines Scrn (NEGATIVE) Urine MDMA Screen (NEGATIVE) U Benzodiazepines Scrn (NEGATIVE) Urine Cocaine Screen (NEGATIVE) U Marijuana (THC) Screen (NEGATIVE) Ethyl Alcohol < 3 (0) mg/dL SARS-CoV-2 RNA (JAREN) Positive H (NEGATIVE) 07/25/21 07/25/21 07/25/21 Range/Units 21:25 21:25 23:56 WBC (5.0-10.0) 10^3/uL RBC (4.6-6.2) 10^6/uL Hgb (14.0-18.0) g/dL Hct (40.0-54.0) % MCV (80-100) fL MCH (27.0-34.0) pg MCHC (33.0-35.0) g/dL Plt Count (150-450) 10^3/uL Neut % (Auto) (42.2-75.2) % Lymph % (Auto) (20.5-50.1) % [place] % (Auto) (2-8) % Eos % (Auto) (1.0-3.0) % Baso % (Auto) (0.0-1.0) % PT 11.5 D (9.0-12.0) SEC INR 1.1 (0.9-1.2) APTT 33.8 (22.0-34.0) SEC D-Dimer, Quantitative 2070 H (0-400) ng/mL Sodium (136-145) mmol/L Potassium (3.5-5.1) mmol/L Chloride (98-107) mmol/L Carbon Dioxide (21-32) mmol/L Anion Gap (7-13) mEq/L BUN (7-18) mg/dL Creatinine (0.70-1.30) mg/dL Est Cr Clr Drug Dosing mL/min Estimated GFR (MDRD) BUN/Creatinine Ratio (No establ ref range) Glucose (70-99) mg/dL Lactic Acid 1.0 (0.4-2.0) mmol/L Calcium (8.5-10.1) mg/dL Magnesium (1.8-2.4) mg/dL Total Bilirubin (0.2-1.0) mg/dL AST (15-37) U/L ALT (16-63) U/L Alkaline Phosphatase (46-116) U/L Troponin I High Sens (<=76) pg/mL C-Reactive Protein (0.0-0.9) mg/dL B-Natriuretic Peptide (0-100) pg/ml Total Protein (6.4-8.2) g/dL Albumin (3.4-5.0) g/dL Globulin Albumin/Globulin Ratio Urine Color Yellow (YELLOW) Urine Appearance Turbid (CLEAR) Urine pH 6.0 (5.0-9.0) Ur Specific Vincent >= 1.030 (1.005-1.030) Urine Protein >=300 H (NEGATIVE) Urine Glucose (UA) 100 H (NEGATIVE) Urine Ketones 15 H (NEGATIVE) Urine Occult Blood Large H (NEGATIVE) Urine Nitrite Negative (NEGATIVE) Urine Bilirubin Negative (NEGATIVE) Urine Urobilinogen 0.2 (0.2-1.0) mg/dL Ur Leukocyte Esterase Negative (NEGATIVE) U Hyaline Cast (Auto) Few Urine RBC 20-30 H (0-5) /HPF Urine WBC 0-5 (0-5/HPF) /HPF Ur Epithelial Cells Few (NOT SEEN) /HPF Amorphous Sediment Many (NOT SEEN) /HPF Urine Bacteria Few (0-FEW/HPF) /HPF Granular Casts (Auto) Few Fine Granular Casts Moderate H (NOT SEEN) /LPF Urine Mucus Moderate H (NOT SEEN) /LPF Urine Opiates Screen (NEGATIVE) Ur Oxycodone Screen (NEGATIVE) Urine Methadone Screen (NEGATIVE) Ur Barbiturates Screen (NEGATIVE) U Tricyclic Antidepress (NEGATIVE) Ur Phencyclidine Scrn (NEGATIVE) Ur Amphetamine Screen (NEGATIVE) U Methamphetamines Scrn (NEGATIVE) Urine MDMA Screen (NEGATIVE) U Benzodiazepines Scrn (NEGATIVE) Urine Cocaine Screen (NEGATIVE) U Marijuana (THC) Screen (NEGATIVE) Ethyl Alcohol (0) mg/dL SARS-CoV-2 RNA (JAREN) (NEGATIVE) 07/25/21 Range/Units 23:56 WBC (5.0-10.0) 10^3/uL RBC (4.6-6.2) 10^6/uL Hgb (14.0-18.0) g/dL Hct (40.0-54.0) % MCV (80-100) fL MCH (27.0-34.0) pg MCHC (33.0-35.0) g/dL Plt Count (150-450) 10^3/uL Neut % (Auto) (42.2-75.2) % Lymph % (Auto) (20.5-50.1) % [place] % (Auto) (2-8) % Eos % (Auto) (1.0-3.0) % Baso % (Auto) (0.0-1.0) % PT (9.0-12.0) SEC INR (0.9-1.2) APTT (22.0-34.0) SEC D-Dimer, Quantitative (0-400) ng/mL Sodium (136-145) mmol/L Potassium (3.5-5.1) mmol/L Chloride (98-107) mmol/L Carbon Dioxide (21-32) mmol/L Anion Gap (7-13) mEq/L BUN (7-18) mg/dL Creatinine (0.70-1.30) mg/dL Est Cr Clr Drug Dosing mL/min Estimated GFR (MDRD) BUN/Creatinine Ratio (No establ ref range) Glucose (70-99) mg/dL Lactic Acid (0.4-2.0) mmol/L Calcium (8.5-10.1) mg/dL Magnesium (1.8-2.4) mg/dL Total Bilirubin (0.2-1.0) mg/dL AST (15-37) U/L ALT (16-63) U/L Alkaline Phosphatase (46-116) U/L Troponin I High Sens (<=76) pg/mL C-Reactive Protein (0.0-0.9) mg/dL B-Natriuretic Peptide (0-100) pg/ml Total Protein (6.4-8.2) g/dL Albumin (3.4-5.0) g/dL Globulin Albumin/Globulin Ratio Urine Color (YELLOW) Urine Appearance (CLEAR) Urine pH (5.0-9.0) Ur Specific Vincent (1.005-1.030) Urine Protein (NEGATIVE) Urine Glucose (UA) (NEGATIVE) Urine Ketones (NEGATIVE) Urine Occult Blood (NEGATIVE) Urine Nitrite (NEGATIVE) Urine Bilirubin (NEGATIVE) Urine Urobilinogen (0.2-1.0) mg/dL Ur Leukocyte Esterase (NEGATIVE) U Hyaline Cast (Auto) Urine RBC (0-5) /HPF Urine WBC (0-5/HPF) /HPF Ur Epithelial Cells (NOT SEEN) /HPF Amorphous Sediment (NOT SEEN) /HPF Urine Bacteria (0-FEW/HPF) /HPF Granular Casts (Auto) Fine Granular Casts (NOT SEEN) /LPF Urine Mucus (NOT SEEN) /LPF Urine Opiates Screen Negative (NEGATIVE) Ur Oxycodone Screen Negative (NEGATIVE) Urine Methadone Screen Negative (NEGATIVE) Ur Barbiturates Screen Negative (NEGATIVE) U Tricyclic Antidepress Negative (NEGATIVE) Ur Phencyclidine Scrn Negative (NEGATIVE) Ur Amphetamine Screen Negative (NEGATIVE) U Methamphetamines Scrn Negative (NEGATIVE) Urine MDMA Screen Negative (NEGATIVE) U Benzodiazepines Scrn Negative (NEGATIVE) Urine Cocaine Screen Negative (NEGATIVE) U Marijuana (THC) Screen Negative (NEGATIVE) Ethyl Alcohol (0) mg/dL SARS-CoV-2 RNA (JAREN) (NEGATIVE) Meds: Medications Discontinued Medications Generic Name Dose Route Start Last Admin Trade Name Freq PRN Reason Stop Dose Admin Acetaminophen 650 mg 07/25/21 21:15 07/25/21 21:29 Acetaminophen 325 Mg Tab PO 07/25/21 21:16 650 mg NOW ONE Administration Amlodipine Besylate 5 mg 07/25/21 21:16 07/25/21 21:37 Amlodipine 5 Mg Tab PO 07/25/21 21:17 5 mg ONETIME ONE Administration Dexamethasone 6 mg 07/26/21 00:20 07/26/21 00:30 Dexamethasone 4 Mg/Ml Sdv IVPUSH 07/26/21 00:21 6 mg ONETIME ONE Administration Sodium Chloride 1,000 mls @ 500 mls/hr 07/25/21 22:30 07/26/21 00:05 Normal Saline IV 500 mls/hr ASDIRECTED GWYN Infusion Iopamidol 100 ml 07/25/21 22:54 07/25/21 23:20 Iopamidol 755 Mg/Ml 100 Ml Bottle IVPUSH 07/25/21 22:55 100 ml ONETIME ONE Administration Metoprolol Tartrate 50 mg 07/25/21 21:16 07/25/21 21:29 Metoprolol Tartrate 50 Mg Tab PO 07/25/21 21:17 50 mg ONETIME ONE Administration Warfarin Sodium 6 mg 07/26/21 01:34 Warfarin 2 Mg Tab PO 07/26/21 01:35 ONETIME ONE - Radiology Interpretation Free Text/Narrative:: [facility] [place] [facility] Final Radiology Report Call: [phone] assistance Online chat: [email or web address] Name: JIM HOLLIS Age: 65Years M Date: 07/25/2021 SSN: -- : 1955 Study: CT CHEST W CONT Requesting Physician: Bibi Jenkins Images: [id number] Addl Studies: Provided Clinical History: r/o PE; COVID +; D-dimer 2100 Contrast: With Contrast Medium: [id number] Contrast Amount: 72 mL Contrast Method: Intravenous (IV) Page 1 of 2 PROCEDURE INFORMATION: Exam: CT Chest With Contrast; Diagnostic Exam date and time: 07/25/2021 11:40 PM Age: 65 years old Clinical indication: Fever and shortness of breath; Patient HX: On warfarin, inr; Additional info: R/O pe; Covid +; D-dimer 2100 TECHNIQUE: Imaging protocol: Diagnostic computed tomography of the chest with contrast. Radiation optimization: All CT scans at this facility use at least one of these dose optimization techniques: automated exposure control; mA and/or kV adjustment per patient size (includes targeted exams where dose is matched to clinical indication); or iterative reconstructio n. Contrast material: [id number]; Contrast volume: 72 ml; Contrast route: INTRAVENOUS (IV); COMPARISON: No relevant prior studies available. FINDINGS: Lungs: No focal consolidation. Faint scattered ground-glass and interstitial opacities in both lungs. Pleural spaces: There are small pleural effusions Heart: Unremarkable. No cardiomegaly. No pericardial effusion. Aorta: Suprarenal abdominal aortic aneurysm measures up to 5 cm Lymph nodes: Unremarkable. No enlarged lymph nodes. Bones/joints: Unremarkable. No acute fracture. Soft tissues: Unremarkable. IMPRESSION: 1. Scattered infiltrates in both lungs 2. Small pleural effusions 3. Cholelithiasis 4. 5 cm suprarenal abdominal aortic aneurysm. 5. Several calcified gallstones Thank you for allowing us to participate in the care of your patient. Dictated and Authenticated by: Rocky Gastelum MD 07/26/2021 12:09 AM Central Time ([place] & [place]) - Re-Assessments/Exams Free Text/Narrative Re-Assessment/Exam: 07/25/21 Home medications administered. COVID swab sent. D-Dimer >2000, INR subtherapeutic. Troponin and BNP elevated. COVID positive. Will obtain CT chest to r/o PE Appropriate saturation on 2L O2 via NC. NS 250cc bolus administered before and after CT d/t acute on chronic kidney failure (patient follows with Dr. Cox, slip cover maker at [facility]). Findings of examination and lab work reviewed with patient. He verbalized understanding and agreement with the plan of care. CT negative for PE, reveals small bilateral pulmonary effusion and ground glass infiltrates. Dexamethasone 6mg IVP administered. Case discussed with Dr. Pardo, hospitalist at [facility], who kindly accepted patient for transfer as there are no beds available at this facility. Patient verbalized understanding and agreement with the plan of care. Departure - Departure Time of Disposition: 01:36 Disposition: DC/Tfer to Acute Hospital 02 Condition: Fair Clinical Impression: Pneumonia due to COVID-19 virus, Elevated d-dimer, Elevated troponin, Elevated brain natriuretic peptide (BNP) level, Pleural effusion associated with pulmonary infection Chronic kidney disease Qualifiers: Chronic kidney disease stage: unspecified stage Qualified Code(s): N18.9 - Chronic kidney disease, unspecified Cholelithiasis Qualifiers: Cholelithiasis location: gallbladder Cholecystitis presence: without cholecystitis Biliary obstruction: without biliary obstruction Qualified Code(s): K80.20 - Calculus of gallbladder without cholecystitis without obstruction Abdominal aortic aneurysm Qualifiers: Presence of rupture: without rupture Qualified Code(s): I71.4 - Abdominal aortic aneurysm, without rupture - Discharge Information Referrals: [facility],Avel [Primary Care Provider] - Forms: ED Department Discharge, Interfacility Transfer SHANAE Sepsis Event Note (ED) - Evaluation Sepsis Screening Result: No Definite Risk
[2021-07-25 21:51] LABS: PTT,PARTIAL THROMBOPLSTIN TIME 33.8 SEC (22.0-34.0)
[2021-07-25 21:55] LABS: ANION GAP 12.8 mEq/L (7-13); CHLORIDE,CL 103 mmol/L (98-107); SODIUM,NA 134 mmol/L (136-145)
[2021-07-25 22:27] VITALS: BP 145/74; PULSE 79
[2021-07-25] MEDS ORDERED: Sodium Chloride 0.9% 1,000 ML IV SCH (22:30)
[2021-07-25] MEDS ORDERED: Iopamidol 755 Mg/ML 100 ML Bottle IVPUSH ONE (22:54)
--- NOTE | 2021-07-26 00:09 | CT ---
PROCEDURE INFORMATION: Exam: CT Chest With Contrast; Diagnostic Exam date and time: 07/25/2021 11:40 PM Age: 65 years old Clinical indication: Fever and shortness of breath; Patient HX: On warfarin, inr; Additional info: R/O pe; Covid +; D-dimer 2100 TECHNIQUE: Imaging protocol: Diagnostic computed tomography of the chest with contrast. Radiation optimization: All CT scans at this facility use at least one of these dose optimization techniques: automated exposure control; mA and/or kV adjustment per patient size (includes targeted exams where dose is matched to clinical indication); or iterative reconstruction. Contrast material: [id number]; Contrast volume: 72 ml; Contrast route: INTRAVENOUS (IV); COMPARISON: No relevant prior studies available. FINDINGS: Lungs: No focal consolidation. Faint scattered ground-glass and interstitial opacities in both lungs. Pleural spaces: There are small pleural effusions Heart: Unremarkable. No cardiomegaly. No pericardial effusion. Aorta: Suprarenal abdominal aortic aneurysm measures up to 5 cm Lymph nodes: Unremarkable. No enlarged lymph nodes. Bones/joints: Unremarkable. No acute fracture. Soft tissues: Unremarkable. IMPRESSION: 1. Scattered infiltrates in both lungs 2. Small pleural effusions 3. Cholelithiasis 4. 5 cm suprarenal abdominal aortic aneurysm. 5. Several calcified gallstones
[2021-07-26 00:17] LABS: AMPHETAMINES,URINE NEGATIVE (NEGATIVE); BARBITURATES,URINE NEGATIVE (NEGATIVE); BENZODIAZEPINE,URINE NEGATIVE (NEGATIVE); MDMA (ECSTASY), URINE NEGATIVE (NEGATIVE); METHADONE,URINE NEGATIVE (NEGATIVE); METHAMPHETAMINES,URINE NEGATIVE (NEGATIVE); OPIATES,URINE NEGATIVE (NEGATIVE); OXYCODONE,URINE NEGATIVE (NEGATIVE); PHENCYCLIDINE,URINE NEGATIVE (NEGATIVE); TCA,URINE NEGATIVE (NEGATIVE)
[2021-07-26] MEDS ORDERED: Dexamethasone 4 MG/ML SDV IVPUSH ONE (00:20)
[2021-07-26] MEDS ORDERED: Warfarin 2 MG Tab PO ONE (01:34)
== END 2021-07-26 02:13 ==
LOC: DL.ED 20:46
DX: U07.1 COVID-19 (principal); J12.82 Pneumonia due to coronavirus disease 2019; R79.1 Abnormal coagulation profile; R79.89 Other specified abnormal findings of blood chemistry; K80.20 Calculus of gallbladder without cholecystitis without obstruction; I71.4 Abdominal aortic aneurysm, without rupture; J90 Pleural effusion, not elsewhere classified; I12.9 Hypertensive chronic kidney disease with stage 1 through stage 4 chronic kidney disease, or unspecified chronic kidney disease; E11.22 Type 2 diabetes mellitus with diabetic chronic kidney disease; N18.30 Chronic kidney disease, stage 3 unspecified; E78.00 Pure hypercholesterolemia, unspecified; I45.10 Unspecified right bundle-branch block; Z79.01 Long term (current) use of anticoagulants; Z79.82 Long term (current) use of aspirin; Z79.899 Other long term (current) drug therapy
CPT/HCPCS: 36415; 71260; 80053; 80305; 80307; 81001; 83605; 83735; 83880; 84484; 85025; 85379; 85610; 85730; 86140; 87040; 87635; 93005; 96374; 99285; A9270; J1100; J7030; Q9967; U0002

== ENCOUNTER 2021-08-11 15:38 | Emergency (ER) | payer BC, OTHER ==
[2021-08-11] MEDS ORDERED: Sodium Chloride 0.9% 10 ML Syringe FLUSH PRN (15:44)
[2021-08-11] MEDS ORDERED: Furosemide 40 MG/4 ML VIAL IV ONE (15:47)
[2021-08-11] MEDS ORDERED: Dexamethasone 4 MG/ML SDV IVPUSH ONE (15:47)
[2021-08-11] MEDS ORDERED: Acetaminophen 325 MG Tab PO ONE (15:47)
[2021-08-11] MEDS ORDERED: Pantoprazole 40 MG Vial IVPUSH ONE (15:49)
[2021-08-11] MEDS ORDERED: Pantoprazole 40 MG in Sodium Chloride 0.9% 100 ML IV SCH (15:50)
[2021-08-11 16:23] LABS: ANION GAP 14.2 mEq/L (7-13)
[2021-08-11 16:26] LABS: PTT,PARTIAL THROMBOPLSTIN TIME 41.9 SEC (22.0-34.0)
[2021-08-11] MEDS ORDERED: Phytonadione 5 MG in Sodium Chloride 0.9% 50 ML IV ONE (17:40)
--- NOTE | 2021-08-11 18:57 | EDM.PDOC ---
Scribed by Tamra Reilly 08/11/21 1843 for Brandon Francis MD <Brandon Francis - Last Filed: 08/11/21 18:51> ED HPI GENERAL MEDICAL PROBLEM - General Chief Complaint: General Stated Complaint: AMBULANCE Time Seen by Provider: 08/11/21 15:39 Source of Information: Reports: Patient, RN, RN Notes Reviewed History Limitations: Reports: No Limitations - History of Present Illness INITIAL COMMENTS - FREE TEXT/NARRATIVE: Patient presents to ED by [facility] from [facility] due to elevated INR, decreased hemoglobin, active nosebleed and blood in stool. On arrival the patient complains of generalized fatigue and mild shortness of breath. His nose has not had active bleeding for the past 1 to 2 hours. He had melanotic stool in the clinic prior to arrival to ER. Clinic provider held the patient in the clinic trying to secure a direct admission via ambulance transfer to a facility with higher level of care but was unsuccessful due to no beds available in the [facility]. HPI reported from clinic that patient was transferred from [facility] on July 26, 2021 to [facility] for COVID pneumonia and acute kidney injury. He was there until July 31, 2021. Patient started to have a nosebleed yesterday morning that was spontaneous out of his right nare. He was placing home packings to try to control, but this continued to bleed. He also states that over the weekend he did have exertional episodes of some chest pain with shortness of breath that would last 5-10 minutes and relieved with rest. He has also noted that since his release he started developing a rash on his trunk that is a little itchy. He reports the only new medications that he has recently had are the medications that he received for his COVID treatment. He was discharged home on oxygen that he uses in the morning when he does exertions. He denies any nausea or vomiting but does report melanotic diarrhea since yesterday. He reports that he had some intermittently in the hospital. He also began to have some pains in his left lower quadrant pelvic region that started since his discharge. He has had an appendectomy in the past and since discharge this has been unchanged. He does not some postural dizziness. Denies syncope. He takes Coumadin 6mg a day and last took this on Wednesday. He also takes 81mg aspirin a day and denies any other NSAID use. states he was treated with remdisivir and dexamethasone as part of his COVID treatment. He currently takes Coumadin for a prosthetic aortic valve that was placed in 1995. He had a pacemaker check with cardiology in [place] and patient reports that he is at end-of-life for his pacemaker status also. Onset: Today Duration: Getting Worse Severity: Severe Improves with: Reports: None Worsens with: Reports: None Associated Symptoms: Reports: No Other Symptoms - Related Data Allergies Allergy/AdvReac Type Severity Reaction Status Date / Time No Known Allergies Allergy Verified 08/11/21 15:57 Home Meds: Home Meds Ezetimibe [Zetia] 10 mg PO DAILY 06/30/15 [History] Metoprolol Tartrate 50 mg PO DAILY 06/30/15 [History] Pioglitazone [Actos] 45 mg PO DAILY 06/30/15 [History] Ramipril [Altace] 10 mg PO BID 06/30/15 [History] Triamterene/Hydrochlorothiazid [Triamterene-HCTZ 37.5-25 MG] 1 tab PO DAILY 06/30/15 [History] Warfarin [Coumadin] 6 mg PO DAILY 06/30/15 [History] atorvaSTATin Calcium [Atorvastatin Calcium] 80 mg PO DAILY 06/30/15 [History] glipiZIDE [Glipizide] 10 tab PO BID 06/30/15 [History] metFORMIN [Glucophage] 1,000 tab PO DAILY 06/30/15 [History] Aspirin [Adult Low Dose Aspirin EC] 81 mg PO DAILY 01/29/17 [History] Cholecalciferol (Vitamin D3) [Vitamin D3] 2 tab PO DAILY 01/29/17 [History] Fenofibric Acid (Choline) [Fenofibric Acid] 1 cap PO DAILY 01/29/17 [History] Multivitamin [Daily Multiple Vitamin] 1 tab PO DAILY 01/29/17 [History] amLODIPine [Norvasc] 5 mg PO BID 01/29/17 [History] Alogliptin Benzoate [Alogliptin] 25 mg PO DAILY 03/24/20 [History] Insulin Detemir [Levemir Flextouch] 26 unit SQ DAILY 08/11/21 [History] Semaglutide [Ozempic] 5 mg SQ .WEEKLY 10/11/21 [History] Past Medical History HEENT History: Reports: Impaired Vision, Macular Degeneration (age related), Other (See Below) (blepharitis,bilateral. Myopia.Presbyopia. Tear film insufficiency, bilateral. Vitreous degeneration, bilateral.) Cardiovascular History: Reports: Aneurysm (abdominal aortic repaired with graft approximately 1998), Heart Valve Replacement, High Cholesterol, Hypertension, Pacemaker, Other (See Below) (subacute bacterial endocarditis prophylaxis.) Endocrine/Metabolic History: Reports: Diabetes, Type II, Other (See Below) (chr onic kidney disease stage 3.) Hematologic History: Reports: Anticoagulation Therapy Dermatologic History: Reports: Other (See Below) (rosacea) - Past Surgical History Cardiovascular Surgical History: Reports: Other (See Below) (dual chamber [employer] [place] pacemaker implantation. Aorti valve replacement.) GI Surgical History: Reports: Appendectomy Social & Family History - Family History Family Medical History: No Pertinent Family History - Caffeine Use Caffeine Use: Reports: Coffee - Living Situation & Occupation Living situation: Reports: with Family ED ROS GENERAL - Review of Systems Review Of Systems: Comprehensive ROS is negative, except as noted in HPI. ED EXAM, GENERAL - Physical Exam Exam: See Below Exam Limited By: No Limitations General Appearance: Alert, WD/WN, No Apparent Distress Eye Exam: Bilateral Eye: Normal Inspection (No scleral icterus) Ears: Normal External Exam Nose: Other (Packing in Rt nares with no active bleeding.) Throat/Mouth: Normal Inspection, Normal Voice, No Airway Compromise Head: Atraumatic, Normocephalic Neck: Normal Inspection Respiratory/Chest: No Respiratory Distress, Lungs Clear, No Accessory Muscle Use, Decreased Breath Sounds Cardiovascular: Regular Rate, Rhythm, No Edema GI/Abdominal: Normal Bowel Sounds, Soft, Non-Tender Rectal (Males) Exam: Black Stool, Heme + Stool Back Exam: Normal Inspection Extremities: Normal Inspection Neurological: Alert, Oriented, CN II-XII Intact, Normal Cognition, No Motor/Sensory Deficits Psychiatric: Normal Affect, Normal Mood Skin Exam: Warm, Dry, Intact, Pallor, Rash (Patchy erythematous rash with well defined borders to neck, back, chest, and abdomen) #1 Interpretation EKG Date: 08/11/21 Time: 16:02 Rhythm: Other (paced) Rate (Beats/Min): 79 Course - Re-Assessments/Exams Free Text/Narrative Re-Assessment/Exam: Lab from [facility]. Glucose 114, ER GFR 27, urea nitrogen 45.1, creatinine 2.4, sodium 138, potassium 4.5, chloride 112, C02 17.9, calcium 8.1. WBC 9.6, RBC 2.09, hemoglobin 6.8, hematocrit 20.0, platelet count 257. July 17, 2020 hemoglobin 10.6. INR 08/11/2021 at [facility] 4.9. 08/11/21 18:[address] [facility], by Dr. Marie, but the bed will not be available for a few hours. Care of pt transferred to Palmer ASTORGA at shift change. Departure - Departure Disposition: DC/Tfer to [facility] 02 Condition: Fair, Serious Clinical Impression: GI bleed, Epistaxis, Supratherapeutic INR, Acute anemia - Discharge Information *PRESCRIPTION DRUG MONITORING PROGRAM REVIEWED*: Not Applicable *COPY OF PRESCRIPTION DRUG MONITORING REPORT IN PATIENT ABIODUN: Not Applicable Referrals: PCP,None [Primary Care Provider] - Forms: ED Department Discharge, Interfacility Transfer EMTALA <Palmer Gomez - Last Filed: 08/11/21 19:17> Course - Vital Signs Last Recorded V/S: Last Vital Signs Temp 96.8 F L 08/11/21 18:39 Pulse 84 08/11/21 18:39 Resp 18 08/11/21 18:39 BP 196/68 H 08/11/21 18:39 Pulse Ox 97 08/11/21 18:39 - Orders/Labs/Meds Orders: Active Orders 24 hr Category Date Time Status Peripheral IV Care [RC] . DIRECTED Care 08/11/21 15:46 Active Verify Patient Consent Obtain [RC] ASDIRECTED Care 08/11/21 15:47 Active Pantoprazole [ProTONIX IV] 40 mg Med 08/11/21 15:50 Active Sodium Chloride 0.9% [Normal Saline] 100 ml IV .CONTINUOS Sodium Chloride 0.9% [Saline Flush] Med 08/11/21 15:44 Active 10 ml FLUSH ASDIRECTED PRN Peripheral IV Insertion Adult [OM.PC] Stat Oth 08/11/21 15:45 Ordered Transfuse Red Blood Cells [COMM] Stat Oth 08/11/21 15:47 Ordered Medication Orders Pantoprazole Sodium 40 mg/ (Sodium Chloride) 100 mls @ 20 mls/hr IV .CONTINUOS GWYN Last Admin: 08/11/21 17:35 Dose: 20 mls/hr Documented by: RODOLFO Sodium Chloride (Sodium Chloride 0.9% 10 Ml Syringe) 10 ml FLUSH ASDIRECTED PRN PRN Reason: Keep Vein Open Last Admin: 08/11/21 18:26 Dose: 10 ml Documented by: RODOLFO Labs: Laboratory Tests 08/11/21 08/11/21 08/11/21 Range/Units 15:57 15:57 15:57 WBC 8.8 (5.0-10.0) 10^3/uL RBC 2.00 L (4.6-6.2) 10^6/uL Hgb 6.3 L* D (14.0-18.0) g/dL Hct 20.0 L* (40.0-54.0) % MCV 100.0 (80-100) fL MCH 31.5 (27.0-34.0) pg MCHC 31.5 L (33.0-35.0) g/dL Plt Count 251 (150-450) 10^3/uL Neut % (Auto) 76.9 H (42.2-75.2) % Lymph % (Auto) 13.4 L (20.5-50.1) % [place] % (Auto) 7.5 (2-8) % Eos % (Auto) 1.5 (1.0-3.0) % Baso % (Auto) 0.7 (0.0-1.0) % PT 34.8 H D (9.0-12.0) SEC INR 3.5 H (0.9-1.2) APTT 41.9 H (22.0-34.0) SEC Sodium 141 (136-145) mmol/L Potassium 4.2 (3.5-5.1) mmol/L Chloride 110 H (98-107) mmol/L Carbon Dioxide 21 (21-32) mmol/L Anion Gap 14.2 H (7-13) mEq/L BUN 42 H (7-18) mg/dL Creatinine 2.59 H (0.70-1.30) mg/dL Est Cr Clr Drug Dosing 28.43 mL/min Estimated GFR (MDRD) 25 BUN/Creatinine Ratio 16.2 (No establ ref range) Glucose 107 H (70-99) mg/dL Lactic Acid (0.4-2.0) mmol/L Calcium 8.0 L (8.5-10.1) mg/dL Total Bilirubin 0.4 (0.2-1.0) mg/dL AST 28 (15-37) U/L ALT 49 (16-63) U/L Alkaline Phosphatase 91 (46-116) U/L Troponin I High Sens 26 (<=76) pg/mL B-Natriuretic Peptide 136 H (0-100) pg/ml Total Protein 4.8 L (6.4-8.2) g/dL Albumin 1.8 L (3.4-5.0) g/dL Globulin 3.0 Albumin/Globulin Ratio 0.60 Amylase 90 (25-115) U/L Lipase 263 (73-393) U/L Urine Color (YELLOW) Urine Appearance (CLEAR) Urine pH (5.0-9.0) Ur Specific [place] (1.005-1.030) Urine Protein (NEGATIVE) Urine Glucose (UA) (NEGATIVE) Urine Ketones (NEGATIVE) Urine Occult Blood (NEGATIVE) Urine Nitrite (NEGATIVE) Urine Bilirubin (NEGATIVE) Urine Urobilinogen (0.2-1.0) mg/dL Ur Leukocyte Esterase (NEGATIVE) U Hyaline Cast (Auto) Urine RBC (0-5) /HPF Urine WBC (0-5/HPF) /HPF Ur Epithelial Cells (NOT SEEN) /HPF Amorphous Sediment (NOT SEEN) /HPF Urine Bacteria (0-FEW/HPF) /HPF Fine Granular Casts (NOT SEEN) /LPF Urine Mucus (NOT SEEN) /LPF Blood Type Gel Antibody Screen Crossmatch 08/11/21 08/11/21 08/11/21 Range/Units 15:57 15:57 16:40 WBC (5.0-10.0) 10^3/uL RBC (4.6-6.2) 10^6/uL Hgb (14.0-18.0) g/dL Hct (40.0-54.0) % MCV (80-100) fL MCH (27.0-34.0) pg MCHC (33.0-35.0) g/dL Plt Count (150-450) 10^3/uL Neut % (Auto) (42.2-75.2) % Lymph % (Auto) (20.5-50.1) % [place] % (Auto) (2-8) % Eos % (Auto) (1.0-3.0) % Baso % (Auto) (0.0-1.0) % PT (9.0-12.0) SEC INR (0.9-1.2) APTT (22.0-34.0) SEC Sodium (136-145) mmol/L Potassium (3.5-5.1) mmol/L Chloride (98-107) mmol/L Carbon Dioxide (21-32) mmol/L Anion Gap (7-13) mEq/L BUN (7-18) mg/dL Creatinine (0.70-1.30) mg/dL Est Cr Clr Drug Dosing mL/min Estimated GFR (MDRD) BUN/Creatinine Ratio (No establ ref range) Glucose (70-99) mg/dL Lactic Acid 0.7 (0.4-2.0) mmol/L Calcium (8.5-10.1) mg/dL Total Bilirubin (0.2-1.0) mg/dL AST (15-37) U/L ALT (16-63) U/L Alkaline Phosphatase (46-116) U/L Troponin I High Sens (<=76) pg/mL B-Natriuretic Peptide (0-100) pg/ml Total Protein (6.4-8.2) g/dL Albumin (3.4-5.0) g/dL Globulin Albumin/Globulin Ratio Amylase (25-115) U/L Lipase (73-393) U/L Urine Color Yellow (YELLOW) Urine Appearance Cloudy (CLEAR) Urine pH 5.5 (5.0-9.0) Ur Specific [place] >= 1.030 (1.005-1.030) Urine Protein >=300 H (NEGATIVE) Urine Glucose (UA) 100 H (NEGATIVE) Urine Ketones Negative (NEGATIVE) Urine Occult Blood Small H (NEGATIVE) Urine Nitrite Negative (NEGATIVE) Urine Bilirubin Negative (NEGATIVE) Urine Urobilinogen 0.2 (0.2-1.0) mg/dL Ur Leukocyte Esterase Negative (NEGATIVE) U Hyaline Cast (Auto) Few Urine RBC 20-30 H (0-5) /HPF Urine WBC 0-5 (0-5/HPF) /HPF Ur Epithelial Cells Few (NOT SEEN) /HPF Amorphous Sediment Moderate (NOT SEEN) /HPF Urine Bacteria Few (0-FEW/HPF) /HPF Fine Granular Casts Moderate H (NOT SEEN) /LPF Urine Mucus Moderate H (NOT SEEN) /LPF Blood Type A POSITIVE Gel Antibody Screen Negative Crossmatch See Detail Meds: Medications Generic Name Dose Route Start Last Admin Trade Name Gilda PRN Reason Stop Dose Admin Pantoprazole Sodium 40 mg/ 100 mls @ 20 mls/hr 08/11/21 15:50 08/11/21 17:35 Sodium Chloride IV 20 mls/hr .CONTINUOS GWYN Administration Sodium Chloride 10 ml 08/11/21 15:44 08/11/21 18:26 Sodium Chloride 0.9% 10 Ml Syringe FLUSH 10 ml ASDIRECTED PRN Administration Keep Vein Open Discontinued Medications Generic Name Dose Route Start Last Admin Trade Name Gilda PRN Reason Stop Dose Admin Acetaminophen 650 mg 08/11/21 15:47 08/11/21 17:03 Acetaminophen 325 Mg Tab PO 08/11/21 15:48 650 mg NOW ONE Administration Dexamethasone 4 mg 08/11/21 15:47 08/11/21 17:22 Dexamethasone 4 Mg/Ml Sdv IVPUSH 08/11/21 15:48 4 mg ONETIME ONE Administration Furosemide 40 mg 08/11/21 15:47 08/11/21 17:24 Furosemide 40 Mg/4 Ml Vial IV 08/11/21 15:48 40 mg NOW ONE Administration Phytonadione 5 mg/ Sodium 50.5 mls @ 100 mls/hr 08/11/21 17:40 08/11/21 18:34 Chloride IV 08/11/21 18:10 100 mls/hr NOW ONE Administration Pantoprazole Sodium 80 mg 08/11/21 15:49 08/11/21 16:57 Pantoprazole 40 Mg Vial IVPUSH 08/11/21 15:50 80 mg .BOLUS ONE Administration Departure - Departure Time of Disposition: 19:16 Sepsis Event Note (ED) - Focused Exam Vital Signs: Vital Signs Temp Temp Pulse Resp BP BP Pulse Ox 08/11/21 18:39 96.8 F L 84 18 196/68 H 97 08/11/21 18:15 97.2 F 64 24 H 190/83 H 190/83 H 99 08/11/21 18:00 97.2 F 74 18 170/71 H 99 08/11/21 17:30 97.4 F 70 20 117/71 99 08/11/21 17:20 97.1 F 70 20 189/70 H 99 08/11/21 17:09 97.1 F 97 18 158/66 H 08/11/21 15:51 98.1 F 86 20 186/74 H 99 I have read and agree with the documentation that has been completed regarding this visit. By signing this record, I attest that the documentation was completed in my physical presence and is an accurate record of the encounter.
[2021-08-11 19:30] VITALS: BP 188/79; PULSE 80
== END 2021-08-11 20:08 ==
LOC: DL.ED 15:38
DX: K92.2 Gastrointestinal hemorrhage, unspecified (principal); R04.0 Epistaxis; D64.9 Anemia, unspecified; R79.1 Abnormal coagulation profile; Z79.01 Long term (current) use of anticoagulants; Z79.4 Long term (current) use of insulin
CPT/HCPCS: 36415; 36430; 80053; 81001; 82150; 83605; 83690; 83880; 84484; 85025; 85610; 85730; 86850; 86900; 86901; 86920; 86922; 93005; 96365; 96375; 96376; 99285; A9270; C9113; J1100; J1940; J3430; P9016

== ENCOUNTER 2021-09-28 08:36 | Inpatient (IN) | payer BC, OTHER ==
[2021-09-28] MEDS ORDERED: Lidocaine 1% with EPINEPHrine 1:100,000 20 ML MDV INJECT ONE (09:10)
[2021-09-28] MEDS ORDERED: Oxymetazoline 0.05% Nasal Spray 30 ML Bottle NAS ONE (09:11)
--- NOTE | 2021-09-28 09:21 | EDM.PDOC ---
ED HPI GENERAL MEDICAL PROBLEM - General Chief Complaint: ENT Problem Stated Complaint: AMBULANCE Time Seen by Provider: 09/28/21 09:11 Source of Information: Reports: Patient, RN, RN Notes Reviewed History Limitations: Reports: No Limitations - History of Present Illness INITIAL COMMENTS - FREE TEXT/NARRATIVE: Jim is a 65 y/o male with history of CKD, AVR chronically anticoagulated on Coumadin, and s/p pacemaker placement, who presents to the ED via [facility] with complaints of acute epistaxis. The patient reports his nose bleed began yesterday morning and has persisted over the past 24 hours. He describes the bleed as a slow drip, not a hemorrhage. He denies vision changes, dizziness, chest pain/pressure, palpitations, or shortness of breath. The patient notes dark tarry stools over the past 12 hours. He has tried to tamponade the bleed with a make-shift [place], however still notes post- nasal drip as well as garland blood on the facial tissue. - Related Data Allergies Allergy/AdvReac Type Severity Reaction Status Date / Time No Known Allergies Allergy Verified 08/11/21 15:57 Home Meds: Home Meds Ezetimibe [Zetia] 10 mg PO DAILY 06/30/15 [History] Metoprolol Tartrate 50 mg PO DAILY 06/30/15 [History] Pioglitazone [Actos] 45 mg PO DAILY 06/30/15 [History] Ramipril [Altace] 10 mg PO BID 06/30/15 [History] Triamterene/Hydrochlorothiazid [Triamterene-HCTZ 37.5-25 MG] 1 tab PO DAILY 06/30/15 [History] Warfarin [Coumadin] 6 mg PO DAILY 06/30/15 [History] atorvaSTATin Calcium [Atorvastatin Calcium] 80 mg PO DAILY 06/30/15 [History] glipiZIDE [Glipizide] 10 tab PO BID 06/30/15 [History] metFORMIN [Glucophage] 1,000 tab PO DAILY 06/30/15 [History] Aspirin [Adult Low Dose Aspirin EC] 81 mg PO DAILY 01/29/17 [History] Cholecalciferol (Vitamin D3) [Vitamin D3] 2 tab PO DAILY 01/29/17 [History] Fenofibric Acid (Choline) [Fenofibric Acid] 1 cap PO DAILY 01/29/17 [History] Multivitamin [Daily Multiple Vitamin] 1 tab PO DAILY 01/29/17 [History] amLODIPine [Norvasc] 5 mg PO BID 01/29/17 [History] Alogliptin Benzoate [Alogliptin] 25 mg PO DAILY 03/24/20 [History] Insulin Detemir [Levemir Flextouch] 26 unit SQ DAILY 08/11/21 [History] Semaglutide [Ozempic] 5 mg SQ .WEEKLY 08/11/21 [History] Past Medical History HEENT History: Reports: Impaired Vision Cardiovascular History: Reports: Aneurysm, Heart Valve Replacement, High Cholesterol, Hypertension, Pacemaker Endocrine/Metabolic History: Reports: Diabetes, Type II Hematologic History: Reports: Anticoagulation Therapy - Past Surgical History GI Surgical History: Reports: Appendectomy, EGD, Other (See Below) Social & Family History - Family History Family Medical History: No Pertinent Family History - Caffeine Use Caffeine Use: Reports: Coffee ED ROS ENT - Review of Systems Review Of Systems: Comprehensive ROS is negative, except as noted in HPI. ED EXAM, ENT - Physical Exam Exam: See Below Exam Limited By: No Limitations General Appearance: Alert, No Apparent Distress Eye Exam: Bilateral Eye: EOMI, Normal Inspection, PERRL (3mm) Ears: Normal External Exam, Normal Canal, Hearing Grossly Normal, Normal TMs. No: TM Bulging, TM Dullness, TM Erythema, TM Blood, TM Fluid, TM Perforation Nose: Active Bleeding (Right nare), Dried Blood (Left nare) Mouth/Throat: Normal Inspection Head: Atraumatic, Normocephalic Neck: Normal Inspection, Supple, Non-Tender, Full Range of Motion Respiratory/Chest: No Respiratory Distress, Lungs Clear, Normal Breath Sounds, No Accessory Muscle Use, Chest Non-Tender Cardiovascular: Normal Peripheral Pulses, Regular Rate, Rhythm, No Edema, No Gallop, No JVD, No Rub, Systolic Murmur, Other (Valve click; Pacer to left chest) GI/Abdominal: Normal Bowel Sounds, Soft, Non-Tender, No Distention, No Abnormal Bruit, No Mass, Pelvis Stable (Male) Exam: Deferred Rectal (Males) Exam: Deferred Back: Normal Inspection, Full Range of Motion Extremities: Normal Inspection, Normal Range of Motion, Normal Capillary Refill Neurological: Alert, Oriented, CN II-XII Intact, Normal Cognition, Normal Gait, No Motor/Sensory Deficits Psychiatric: Normal Affect, Normal Mood Skin: Warm, Dry, Intact, Normal Color, No Rash. No: Cyanosis, Jaundice, Mottled, Pallor Course - Vital Signs Last Recorded V/S: Last Vital Signs Temp 98.1 F 09/28/21 08:54 Pulse 97 09/28/21 08:54 Resp 16 09/28/21 08:54 BP 127/83 09/28/21 08:54 Pulse Ox 99 09/28/21 08:54 - Orders/Labs/Meds Orders: Active Orders 24 hr Category Date Time Status Admission Diagnosis [ADT] Stat ADT 09/28/21 10:47 Ordered Admission Status [Patient Status] [ADT] Routine ADT 09/28/21 10:47 Active Verify Patient Consent Obtain [RC] ASDIRECTED Care 09/28/21 09:29 Active CORONAVIRUS COVID-19 JAREN [MOLEC] Stat Lab 09/28/21 10:43 Ordered RED BLOOD CELLS LP [BBK] Stat Lab 09/28/21 09:02 Results TYPE AND SCREEN [BBK] Stat Lab 09/28/21 09:02 Results Lactated Ringers [Ringers, Lactated] 1,000 ml Med 09/28/21 10:43 Active IV .BOLUS Transfuse Red Blood Cells [COMM] Stat Oth 09/28/21 09:28 Ordered Medication Orders Lactated Ringer's (Ringers, Lactated) 1,000 mls @ 125 mls/hr IV .BOLUS ONE Stop: 09/28/21 18:42 Labs: Laboratory Tests 09/28/21 09/28/21 09/28/21 Range/Units 09:02 09:02 09:02 WBC 6.9 (5.0-10.0) 10^3/uL RBC 2.28 L (4.6-6.2) 10^6/uL Hgb 7.1 L (14.0-18.0) g/dL Hct 22.3 L (40.0-54.0) % MCV 97.8 (80-100) fL MCH 31.1 (27.0-34.0) pg MCHC 31.8 L (33.0-35.0) g/dL Plt Count 239 (150-450) 10^3/uL Neut % (Auto) 74.8 (42.2-75.2) % Lymph % (Auto) 14.3 L (20.5-50.1) % [place] % (Auto) 7.9 (2-8) % Eos % (Auto) 2.6 (1.0-3.0) % Baso % (Auto) 0.4 (0.0-1.0) % PT 35.2 H (9.0-12.0) SEC INR 3.6 H (0.9-1.2) Sodium 139 (136-145) mmol/L Potassium 4.1 (3.5-5.1) mmol/L Chloride 108 H (98-107) mmol/L Carbon Dioxide 21 (21-32) mmol/L Anion Gap 14.1 H (7-13) mEq/L BUN 41 H (7-18) mg/dL Creatinine 3.69 H (0.70-1.30) mg/dL Est Cr Clr Drug Dosing 19.96 mL/min Estimated GFR (MDRD) 17 BUN/Creatinine Ratio 11.1 (No establ ref range) Glucose 165 H (70-99) mg/dL Calcium 7.8 L (8.5-10.1) mg/dL Total Bilirubin 0.3 (0.2-1.0) mg/dL AST 31 (15-37) U/L ALT 38 (16-63) U/L Alkaline Phosphatase 76 (46-116) U/L Total Protein 4.8 L (6.4-8.2) g/dL Albumin 2.0 L (3.4-5.0) g/dL Globulin 2.8 Albumin/Globulin Ratio 0.71 Blood Type Gel Antibody Screen Crossmatch 09/28/21 Range/Units 09:02 WBC (5.0-10.0) 10^3/uL RBC (4.6-6.2) 10^6/uL Hgb (14.0-18.0) g/dL Hct (40.0-54.0) % MCV (80-100) fL MCH (27.0-34.0) pg MCHC (33.0-35.0) g/dL Plt Count (150-450) 10^3/uL Neut % (Auto) (42.2-75.2) % Lymph % (Auto) (20.5-50.1) % [place] % (Auto) (2-8) % Eos % (Auto) (1.0-3.0) % Baso % (Auto) (0.0-1.0) % PT (9.0-12.0) SEC INR (0.9-1.2) Sodium (136-145) mmol/L Potassium (3.5-5.1) mmol/L Chloride (98-107) mmol/L Carbon Dioxide (21-32) mmol/L Anion Gap (7-13) mEq/L BUN (7-18) mg/dL Creatinine (0.70-1.30) mg/dL Est Cr Clr Drug Dosing mL/min Estimated GFR (MDRD) BUN/Creatinine Ratio (No establ ref range) Glucose (70-99) mg/dL Calcium (8.5-10.1) mg/dL Total Bilirubin (0.2-1.0) mg/dL AST (15-37) U/L ALT (16-63) U/L Alkaline Phosphatase (46-116) U/L Total Protein (6.4-8.2) g/dL Albumin (3.4-5.0) g/dL Globulin Albumin/Globulin Ratio Blood Type A POSITIVE Gel Antibody Screen Negative Crossmatch See Detail Meds: Medications Generic Name Dose Route Start Last Admin Trade Name Freq PRN Reason Stop Dose Admin Lactated Ringer's 1,000 mls @ 125 mls/hr 09/28/21 10:43 Ringers, Lactated IV 09/28/21 18:42 .BOLUS ONE Discontinued Medications Generic Name Dose Route Start Last Admin Trade Name Freq PRN Reason Stop Dose Admin Lidocaine/Epinephrine 15 ml 09/28/21 09:10 09/28/21 09:27 Lidocaine 1% With Epinephrine 1:100,000 20 Ml Mdv INJECT 09/28/21 09:11 15 ml ONETIME ONE Administration Oxymetazoline HCl 1 ml 09/28/21 09:11 09/28/21 09:27 Oxymetazoline 0.05% Nasal [place] 30 Ml Bottle TARA 09/28/21 09:12 1 ml ONETIME ONE Administration Departure - Departure Disposition: Admitted As Inpatient 66 Condition: Good Clinical Impression: Acute anterior epistaxis, Acute blood loss anemia, Acute kidney injury, History of aortic valve replacement, Cardiac pacemaker Chronic kidney disease Qualifiers: Chronic kidney disease stage: unspecified stage Qualified Code(s): N18.9 - Chronic kidney disease, unspecified - Discharge Information Forms: ED Department Discharge Sepsis Event Note (ED) - Evaluation Sepsis Screening Result: No Definite Risk - Focused Exam Vital Signs: Vital Signs Temp Pulse Resp BP Pulse Ox 09/28/21 08:54 98.1 F 97 16 127/83 99 - My Orders Last 24 Hours: My Active Orders 09/28/21 09:02 RED BLOOD CELLS LP [BBK] Stat TYPE AND SCREEN [BBK] Stat 09/28/21 09:28 Transfuse Red Blood Cells [COMM] Stat 09/28/21 09:29 Verify Patient Consent Obtain [RC] ASDIRECTED 09/28/21 10:43 CORONAVIRUS COVID-19 JAREN [MOLEC] Stat Lactated Ringers [Ringers, Lactated] 1,000 ml IV .BOLUS 09/28/21 10:47 Admission Diagnosis [ADT] Stat Admission Status [Patient Status] [ADT] Routine - Assessment/Plan Last 24 Hours: My Active Orders 09/28/21 09:02 RED BLOOD CELLS LP [BBK] Stat TYPE AND SCREEN [BBK] Stat 09/28/21 09:28 Transfuse Red Blood Cells [COMM] Stat 09/28/21 09:29 Verify Patient Consent Obtain [RC] ASDIRECTED 09/28/21 10:43 CORONAVIRUS COVID-19 JAREN [MOLEC] Stat Lactated Ringers [Ringers, Lactated] 1,000 ml IV .BOLUS 09/28/21 10:47 Admission Diagnosis [ADT] Stat Admission Status [Patient Status] [ADT] Routine
[2021-09-28 09:26] LABS: ANION GAP 14.1 mEq/L (7-13)
[2021-09-28] MEDS ORDERED: Lactated Ringers 1,000 ML IV ONE (10:43)
[2021-09-28] MEDS ORDERED: Acetaminophen 325 MG Tab PO PRN (11:25)
[2021-09-28] MEDS ORDERED: Ondansetron 4 MG Tab.DIS PO PRN (11:25)
[2021-09-28] MEDS: Insulin Lispro 100 Units/ML 3 ML Vial SUBCUT SCH ×3 (11:30→21:43)
[2021-09-28] MEDS ORDERED: 50% Dextrose in Water 50 ML Syringe IVPUSH PRN (11:33)
[2021-09-28] MEDS ORDERED: Glucagon,Human Recombinant 1 MG Vial IM PRN (11:33)
--- NOTE | 2021-09-28 11:45 | PCM.HP ---
H&P History of Present Illness - General Date of Service: 09/28/21 Admit Problem/Dx: Admission Diagnosis/Problem Admission Diagnosis/Problem Hemorrhage while on warfarin therapy Source of Information: Patient, Provider History Limitations: Reports: No Limitations - History of Present Illness Onset of Symptoms: Reports: Other (yesterday) Symptom Onset Date: 09/27/21 Symptom Onset Time: 08:00 (nose bleed started 0800 yesterday) Severity: Severe Associated Symptoms: Reports: Other (black tarry stools) - Related Data Allergies/Adverse Reactions: Allergies Allergy/AdvReac Type Severity Reaction Status Date / Time No Known Allergies Allergy Verified 09/28/21 11:47 Home Medications: Home Meds Ezetimibe [Zetia] 10 mg PO DAILY 06/30/15 [History] Metoprolol Tartrate 50 mg PO DAILY 06/30/15 [History] Pioglitazone [Actos] 45 mg PO DAILY 06/30/15 [History] Ramipril [Altace] 10 mg PO BID 06/30/15 [History] Triamterene/Hydrochlorothiazid [Triamterene-HCTZ 37.5-25 MG] 1 tab PO DAILY 06/30/15 [History] Warfarin [Coumadin] 6 mg PO DAILY 06/30/15 [History] atorvaSTATin Calcium [Atorvastatin Calcium] 80 mg PO DAILY 06/30/15 [History] glipiZIDE [Glipizide] 10 tab PO BID 06/30/15 [History] metFORMIN [Glucophage] 1,000 tab PO DAILY 06/30/15 [History] Aspirin [Adult Low Dose Aspirin EC] 81 mg PO DAILY 01/29/17 [History] Cholecalciferol (Vitamin D3) [Vitamin D3] 2 tab PO DAILY 01/29/17 [History] Fenofibric Acid (Choline) [Fenofibric Acid] 1 cap PO DAILY 01/29/17 [History] Multivitamin [Daily Multiple Vitamin] 1 tab PO DAILY 01/29/17 [History] amLODIPine [Norvasc] 5 mg PO BID 01/29/17 [History] Alogliptin Benzoate [Alogliptin] 25 mg PO DAILY 03/24/20 [History] Insulin Detemir [Levemir Flextouch] 26 unit SQ DAILY 08/11/21 [History] Semaglutide [Ozempic] 5 mg SQ .WEEKLY 08/11/21 [History] Furosemide [Lasix] 40 mg PO 09/28/21 [History] Past Medical History HEENT History: Reports: Impaired Vision Cardiovascular History: Reports: Aneurysm, Heart Valve Replacement (aortic valve), High Cholesterol, Hypertension, Pacemaker Genitourinary History: Reports: Chronic Renal Insuffiency (CKD stage IV) Endocrine/Metabolic History: Reports: Diabetes, Type II Hematologic History: Reports: Anemia (of CKD stage IV), Anticoagulation Therapy - Past Surgical History GI Surgical History: Reports: Appendectomy, EGD, Other (See Below) Social & Family History - Family History Family Medical History: No Pertinent Family History - Tobacco Use Tobacco Use Status *Q: Never Tobacco User Second Hand Smoke Exposure: No - Caffeine Use Caffeine Use: Reports: None - Recreational Drug Use Recreational Drug Use: No - Living Situation & Occupation Living situation: Reports: (lives at home with spouse and 2 grandkids) H&P Review of Systems - Review of Systems: Review Of Systems: See Below General: Reports: No Symptoms HEENT: Reports: Other (nose bleed) Pulmonary: Reports: No Symptoms Cardiovascular: Reports: No Symptoms Gastrointestinal: Reports: Diarrhea (black tarry) Genitourinary: Reports: No Symptoms Musculoskeletal: Reports: Joint Swelling (chronic bilateral ankle swelling) Skin: Reports: No Symptoms Psychiatric: Reports: No Symptoms Neurological: Reports: No Symptoms Exam - Exam Exam: See Below - Vital Signs Vital Signs: Last Vital Signs Temp 98.1 F 09/28/21 08:54 Pulse 97 09/28/21 08:54 Resp 16 09/28/21 08:54 BP 127/83 09/28/21 08:54 Pulse Ox 99 09/28/21 08:54 Weight: 208 lb 3.2 oz - Exam Quality Assessment: No: Supplemental Oxygen, Urinary Catheter, DVT Prophylaxis General: Alert, Oriented, Cooperative HEENT: Conjunctiva Clear, EOMI, Pupils Equal Neck: Supple. No: JVD Lungs: Clear to Auscultation, Normal Respiratory Effort. No: Crackles, Rales, Rhonchi Cardiovascular: Regular Rate, Regular Rhythm, Systolic Murmur (2-3/6 systolic. valve click noted) GI/Abdominal Exam: Soft, Non-Tender (Male) Exam: Deferred Rectal (Males) Exam: Deferred Back Exam: Normal Inspection Extremities: Normal Range of Motion, Joint Swelling (joint swelling in bilateral ankles. non tender to palapation. chronic). No: Increased Warmth Skin: Warm, Dry, Intact Neuro Extensive - Mental Status: Alert, Oriented x3, Normal Mood/Affect, Normal Cognition Psychiatric: Normal Affect, Normal Mood - Patient Data Lab Results Last 24 hrs: Laboratory Results - last 24 hr 09/28/21 09/28/21 09/28/21 Range/Units 09:02 09:02 09:02 WBC 6.9 (5.0-10.0) 10^3/uL RBC 2.28 L (4.6-6.2) 10^6/uL Hgb 7.1 L (14.0-18.0) g/dL Hct 22.3 L (40.0-54.0) % MCV 97.8 (80-100) fL MCH 31.1 (27.0-34.0) pg MCHC 31.8 L (33.0-35.0) g/dL Plt Count 239 (150-450) 10^3/uL Neut % (Auto) 74.8 (42.2-75.2) % Lymph % (Auto) 14.3 L (20.5-50.1) % [place] % (Auto) 7.9 (2-8) % Eos % (Auto) 2.6 (1.0-3.0) % Baso % (Auto) 0.4 (0.0-1.0) % PT 35.2 H (9.0-12.0) SEC INR 3.6 H (0.9-1.2) Sodium 139 (136-145) mmol/L Potassium 4.1 (3.5-5.1) mmol/L Chloride 108 H (98-107) mmol/L Carbon Dioxide 21 (21-32) mmol/L Anion Gap 14.1 H (7-13) mEq/L BUN 41 H (7-18) mg/dL Creatinine 3.69 H (0.70-1.30) mg/dL Est Cr Clr Drug Dosing 19.96 mL/min Estimated GFR (MDRD) 17 BUN/Creatinine Ratio 11.1 (No establ ref range) Glucose 165 H (70-99) mg/dL Calcium 7.8 L (8.5-10.1) mg/dL Total Bilirubin 0.3 (0.2-1.0) mg/dL AST 31 (15-37) U/L ALT 38 (16-63) U/L Alkaline Phosphatase 76 (46-116) U/L Total Protein 4.8 L (6.4-8.2) g/dL Albumin 2.0 L (3.4-5.0) g/dL Globulin 2.8 Albumin/Globulin Ratio 0.71 SARS CoV-2 RNA Rapid JAREN (NEGATIVE) Blood Type Gel Antibody Screen Crossmatch 09/28/21 09/28/21 Range/Units 09:02 10:50 WBC (5.0-10.0) 10^3/uL RBC (4.6-6.2) 10^6/uL Hgb (14.0-18.0) g/dL Hct (40.0-54.0) % MCV (80-100) fL MCH (27.0-34.0) pg MCHC (33.0-35.0) g/dL Plt Count (150-450) 10^3/uL Neut % (Auto) (42.2-75.2) % Lymph % (Auto) (20.5-50.1) % [place] % (Auto) (2-8) % Eos % (Auto) (1.0-3.0) % Baso % (Auto) (0.0-1.0) % PT (9.0-12.0) SEC INR (0.9-1.2) Sodium (136-145) mmol/L Potassium (3.5-5.1) mmol/L Chloride (98-107) mmol/L Carbon Dioxide (21-32) mmol/L Anion Gap (7-13) mEq/L BUN (7-18) mg/dL Creatinine (0.70-1.30) mg/dL Est Cr Clr Drug Dosing mL/min Estimated GFR (MDRD) BUN/Creatinine Ratio (No establ ref range) Glucose (70-99) mg/dL Calcium (8.5-10.1) mg/dL Total Bilirubin (0.2-1.0) mg/dL AST (15-37) U/L ALT (16-63) U/L Alkaline Phosphatase (46-116) U/L Total Protein (6.4-8.2) g/dL Albumin (3.4-5.0) g/dL Globulin Albumin/Globulin Ratio SARS CoV-2 RNA Rapid JAREN Negative (NEGATIVE) Blood Type A POSITIVE Gel Antibody Screen Negative Crossmatch See Detail Result Diagrams: 09/28/21 09:02 09/28/21 09:02 Problem List Initiated/Reviewed/Updated: Yes Orders Last 24hrs: Active Orders 24 hr Category Date Time Status Admission Diagnosis [ADT] Stat ADT 09/28/21 10:47 Ordered Admission Status [Patient Status] [ADT] Routine ADT 09/28/21 10:47 Active Patient Status [ADT] Routine ADT 09/28/21 11:25 Ordered Antiembolic Devices [RC] PER UNIT ROUTINE Care 09/28/21 11:30 Ordered Blood Glucose Check, Bedside [RC] QIDACANDBED Care 09/28/21 11:25 Ordered Blood Glucose Check, Bedside [RC] WITHMEALSANDBED Care 09/28/21 11:33 Ordered Height and Weight [RC] DAILY Care 09/28/21 11:25 Ordered Intake and Output [RC] QSHIFT Care 09/28/21 11:27 Ordered Oxygen Therapy [RC] PRN Care 09/28/21 11:25 Ordered Up With Assistance [RC] ASDIRECTED Care 09/28/21 11:25 Ordered VTE/DVT Education [RC] PER UNIT ROUTINE Care 09/28/21 11:25 Ordered Verify Patient Consent Obtain [RC] ASDIRECTED Care 09/28/21 09:29 Active Vital Signs [RC] Q4H Care 09/28/21 11:25 Ordered Regular Diet [DIET] Diet 09/28/21 Breakfast Ordered BASIC METABOLIC PANEL,BMP [CHEM] AM Lab 09/29/21 05:11 Ordered CBC W/O DIFF,HEMOGRAM [HEME] Routine Lab 09/28/21 11:33 Ordered HEMOGLOBIN [HEME] Timed Lab 09/28/21 20:00 Ordered RED BLOOD CELLS LP [BBK] Stat Lab 09/28/21 09:02 Results TYPE AND SCREEN [BBK] Stat Lab 09/28/21 09:02 Results Acetaminophen [TylenoL] Med 09/28/21 11:25 Ordered 650 mg PO Q4H PRN Dextrose 50% in Water Med 09/28/21 11:33 Ordered 50 ml IVPUSH Q15M PRN Furosemide [Lasix] Med 09/28/21 11:45 Unverified DOSE UNIT RTE FREQ Glucagon,Human Recombinant [GlucaGen] Med 09/28/21 11:33 Ordered 1 mg IM Q15M PRN HCTZ/Triamterene [Maxzide 25-37.5 MG] Med 09/29/21 09:00 Ordered 1 each PO DAILY Insulin Detemir Med 09/29/21 09:00 Ordered 26 unit SQ DAILY Insulin Lispro [HumaLOG] Med 09/28/21 12:00 Ordered See Protocol SUBCUT WITHMEALSANDBED Lactated Ringers [Ringers, Lactated] 1,000 ml Med 09/28/21 10:43 Active IV .BOLUS Metoprolol Tartrate Med 09/29/21 09:00 Ordered 50 mg PO DAILY Ondansetron [Zofran ODT] Med 09/28/21 11:25 Ordered 8 mg PO Q6H PRN Pioglitazone [Actos] Med 09/29/21 09:00 Ordered 45 mg PO DAILY atorvaSTATin Calcium [Atorvastatin Calcium] Med 09/29/21 09:00 Ordered 80 mg PO DAILY Sequential Compression Device [OM.PC] Per Unit Routine Oth 09/28/21 11:28 Ordered Transfuse Red Blood Cells [COMM] Stat Oth 09/28/21 09:28 Ordered Resuscitation Status Routine Resus Stat 09/28/21 11:25 Ordered Medication Orders Acetaminophen (Acetaminophen 325 Mg Tab) 650 mg PO Q4H PRN PRN Reason: Pain (Mild 1-3)/fever Dextrose/Water (50% Dextrose In Water 50 Ml Syringe) 50 ml IVPUSH Q15M PRN PRN Reason: Hypoglycemia Glucagon (Glucagon,Human Recombinant 1 Mg Vial) 1 mg IM Q15M PRN PRN Reason: Hypoglycemia Lactated Ringer's (Ringers, Lactated) 1,000 mls @ 125 mls/hr IV .BOLUS ONE Stop: 09/28/21 18:42 Insulin Human Lispro (Insulin Lispro 100 Units/Ml 3 Ml Vial) 0 unit SUBCUT WITHMEALSANDBED [facility]; Protocol Non-Formulary Medication (Atorvastatin Calcium [Atorvastatin Calcium]) 80 mg PO DAILY [facility] Non-Formulary Medication (Metoprolol Tartrate) 50 mg PO DAILY [facility] Non-Formulary Medication (Pioglitazone [Actos]) 45 mg PO DAILY [facility] Non-Formulary Medication (Insulin Detemir) 26 unit SQ DAILY [facility] Ondansetron HCl (Ondansetron 4 Mg Tab.Dis) 8 mg PO Q6H PRN PRN Reason: nausea, able to take PO Triamterene/Hydrochlorothiazide (Hydrochlorothiazide/Triamterene 25-37.5 Tab) 1 each PO DAILY [facility] Assessment/Plan Comment:: ACTIVE PROBLEMS: Acute blood loss anemia secondary to epistaxis Epistaxis chronic anemia secondary to CKD stage IV - Baseline Hgb 9-10; admit hgb 7.1. pt symptomatic and dizzy - type and screen with transfusion of 1U PRBC started in ED - Afrin with epi nasal spray in ED s/p resolution Plan: - recheck Hgb every 8 hours - transfuse for hgb <8 given hx of cardiac disease and active bleeding - up with assistance only to avoid falls CARMINE on CKD stage IV: - likely CARMINE due to hypoperfusion secondary to acute blood loss - baseline creatinine 2.8; admit creatinine 3.8 Plan: - avoid nephrotoxic agents including ACEI, metformin and lasix from home med list - IV LR at 125mL for one liter - recheck renal function early am Hx of aortic valve replacement on prison anticoagulation with warfarin: - admit INR therapeutic. Plan: - hold ASA and warfarin given acute bleed. - INR daily. likely resume warfarin tomorrow dependent on Hgb and bleeding status DMII, insulin dependent, in obese with unspecified complications - currently well controlled. poor oral intake in past 24 hours 2/2 epistaxis Plan: - continue levemir 26U once daily - hold oral antidiabetic agents - POC blood glucose and low dose SSI - Hypoglycemia protocol in place Dark tarry diarrhea: - likely GI irritation 2/2 blood present from epistaxis. will self resolve with time over the next 2-3 days. no intervention necessary CHRONIC CONDITIONS: continue current home meds as ordered - Obesity: BMI 30-34 on admit - Hx of pacemaker - Essential HTN: hold EUGENE I given CARMINE. continue HCTZ combo pill - Mixed HLD: continue atorvastatin 80mg nightly. hold zetia - CAD: hold lasix today. continue metoprolol. DVT prophylaxis: SCDs only given acute bleed Code status: full code
[2021-09-28] MEDS ORDERED: Sodium Chloride 0.9% 250 ML IV SCH (23:00)
[2021-09-29 06:41] LABS: ANION GAP 13.1 mEq/L (7-13)
[2021-09-29] MEDS ORDERED: PIOGLITAZONE 45 MG PO SCH (09:00)
[2021-09-29] MEDS ORDERED: Hydrochlorothiazide/Triamterene 25-37.5 Tab PO SCH (09:00)
[2021-09-29] MEDS ORDERED: Furosemide 40 MG Tab PO SCH ×2 (09:00→11:30)
[2021-09-29] MEDS ORDERED: Non-Formulary Medication 1 Each (Atorvastatin Calcium [Atorvastatin Calcium] 80 MG Tablet) PO SCH (09:00)
[2021-09-29] MEDS ORDERED: Non-Formulary Medication 1 Each (Metoprolol Tartrate 100 MG Tablet) PO SCH (09:00)
[2021-09-29] MEDS ORDERED: Insulin Glarg,Human.Rec.Analog 100 Unit/ML SUBCUT SCH (09:00)
[2021-09-29] MEDS: Insulin Lispro 100 Units/ML 3 ML Vial SUBCUT SCH ×3 (09:10→17:10)
[2021-09-29 16:13] VITALS: BP 168/57; PULSE 73
--- NOTE | 2021-09-29 18:12 | PCM.DCSUM1 ---
Discharge Summary - Hospital Course Brief History: see below Diagnosis: Stroke: No Modified [place] Scale: No Symptoms at All Modified [place] Scale Score: 0 - Discharge Data Discharge Date: 09/29/21 Discharge Disposition: Home, Self-Care 01 Condition: Good - Referral to Home Health Primary Care Physician: PCP None - Patient Summary/Data Hospital Course: Jim is a 65 y/o male with history of CKD, AVR chronically anticoagulated on Coumadin, and s/p pacemaker placement, who presented to the ED via [facility] with complaints of acute epistaxis. The patient reported almost 48 hours of epistaxis. He describes the bleed as continuous. He was on ASA 81 and warfarin at baseline. He endorsed dizziness and increased shortness of breath. He also had associated dark tarry stools over the previous 12 hours. He tried to tamponade the bleed with a make-shift [place], however still had bloody post-nasal drip as well as [place] blood on the facial tissue. Afrin with epinephrine was given in the ED with resolution of bleeding. Hgb baseline between 9-10 with ED value noted to be 7.1. throughout the hospital stay hgb was trended and he was transfused 3U PRBC. Hgb returned to baseline, dizziness and SOB resolved. Pt was thought to be medically stable for discharge on the evening of 09/29/21. All questions and concerns were addressed at bedside prior to discharge. - Patient Instructions Diet: Usual Diet as Tolerated Driving: May Drive Today Showering/Bathing: May Shower - Discharge Plan *PRESCRIPTION DRUG MONITORING PROGRAM REVIEWED*: Not Applicable *COPY OF PRESCRIPTION DRUG MONITORING REPORT IN PATIENT ABIODUN: Not Applicable Home Medications: Home Meds Warfarin [Coumadin] 5 mg PO DAILY 06/30/15 [History] atorvaSTATin Calcium [Atorvastatin Calcium] 80 mg PO DAILY 06/30/15 [History] metFORMIN [Glucophage] 1,000 tab PO DAILY 06/30/15 [History] Multivitamin [Daily Multiple Vitamin] 1 tab PO DAILY 01/29/17 [History] Insulin Detemir [Levemir Flextouch] 26 unit SQ DAILY 08/11/21 [History] Furosemide [Lasix] 40 mg PO DAILY 09/28/21 [History] hydroCHLOROthiazide [Hydrochlorothiazide] 25 mg PO DAILY 09/28/21 [History] Oxygen Therapy Mode: Room Air Forms: ED Department Discharge Referrals: Bakari Carrasco MD [Ordering Only Provider] - - Discharge Summary/Plan Comment DC Time >30 min.: Yes Total # of Minutes for Discharge Time: 45 - General Info Date of Service: 09/29/21 Admission Dx/Problem (Free Text: Admission Diagnosis/Problem Admission Diagnosis/Problem Hemorrhage while on warfarin therapy Subjective Update: doing well. not dizzy anymore. no acute concerns. Functional Status: Reports: Pain Controlled, Tolerating Diet, Ambulating, Urinating. Denies: New Symptoms - Review of Systems General: Reports: No Symptoms HEENT: Reports: No Symptoms Pulmonary: Reports: No Symptoms Cardiovascular: Reports: No Symptoms Gastrointestinal: Reports: No Symptoms Genitourinary: Reports: No Symptoms Musculoskeletal: Reports: No Symptoms Skin: Reports: No Symptoms Neurological: Reports: No Symptoms Psychiatric: Reports: No Symptoms - Patient Data Vitals - Most Recent: Last Vital Signs Temp 97.8 F 09/29/21 16:12 Pulse 73 09/29/21 16:12 Resp 20 09/29/21 16:12 BP 168/57 H 09/29/21 16:12 Pulse Ox 100 09/29/21 16:12 Weight - Most Recent: 195 lb 12.8 oz I&O - Last 24 hours: Intake & Output 09/29/21 09/29/21 09/29/21 06:59 14:59 22:59 Intake Total 1450 810 Balance 1450 810 Lab Results - Last 24 hrs: Laboratory Results - last 24 hr 09/28/21 09/28/21 09/28/21 Range/Units 09:02 20:00 20:50 WBC (5.0-10.0) 10^3/uL RBC (4.6-6.2) 10^6/uL Hgb 7.3 L (14.0-18.0) g/dL Hct (40.0-54.0) % MCV (80-100) fL MCH (27.0-34.0) pg MCHC (33.0-35.0) g/dL Plt Count (150-450) 10^3/uL Sodium (136-145) mmol/L Potassium (3.5-5.1) mmol/L Chloride (98-107) mmol/L Carbon Dioxide (21-32) mmol/L Anion Gap (7-13) mEq/L BUN (7-18) mg/dL Creatinine (0.70-1.30) mg/dL Est Cr Clr Drug Dosing mL/min Estimated GFR (MDRD) Glucose (70-99) mg/dL POC Glucose 198 H (70-99) mg/dL Calcium (8.5-10.1) mg/dL Blood Type A POSITIVE Gel Antibody Screen Negative Crossmatch See Detail 09/29/21 09/29/21 09/29/21 Range/Units 05:40 05:40 07:21 WBC 7.0 (5.0-10.0) 10^3/uL RBC 2.53 L (4.6-6.2) 10^6/uL Hgb 7.6 L (14.0-18.0) g/dL Hct 23.6 L (40.0-54.0) % MCV 93.3 D (80-100) fL MCH 30.0 (27.0-34.0) pg MCHC 32.2 L (33.0-35.0) g/dL Plt Count 222 (150-450) 10^3/uL Sodium 139 (136-145) mmol/L Potassium 4.1 (3.5-5.1) mmol/L Chloride 110 H (98-107) mmol/L Carbon Dioxide 20 L (21-32) mmol/L Anion Gap 13.1 H (7-13) mEq/L BUN 45 H (7-18) mg/dL Creatinine 3.29 H (0.70-1.30) mg/dL Est Cr Clr Drug Dosing 22.38 mL/min Estimated GFR (MDRD) 19 Glucose 127 H (70-99) mg/dL POC Glucose 122 H (70-99) mg/dL Calcium 7.7 L (8.5-10.1) mg/dL Blood Type Gel Antibody Screen Crossmatch 09/29/21 09/29/21 Range/Units 11:41 16:59 WBC (5.0-10.0) 10^3/uL RBC (4.6-6.2) 10^6/uL Hgb (14.0-18.0) g/dL Hct (40.0-54.0) % MCV (80-100) fL MCH (27.0-34.0) pg MCHC (33.0-35.0) g/dL Plt Count (150-450) 10^3/uL Sodium (136-145) mmol/L Potassium (3.5-5.1) mmol/L Chloride (98-107) mmol/L Carbon Dioxide (21-32) mmol/L Anion Gap (7-13) mEq/L BUN (7-18) mg/dL Creatinine (0.70-1.30) mg/dL Est Cr Clr Drug Dosing mL/min Estimated GFR (MDRD) Glucose (70-99) mg/dL POC Glucose 194 H 92 (70-99) mg/dL Calcium (8.5-10.1) mg/dL Blood Type Gel Antibody Screen Crossmatch Med Orders - Current: Current Medications Acetaminophen (Acetaminophen 325 Mg Tab) 650 mg PO Q4H PRN PRN Reason: Pain (Mild 1-3)/fever Dextrose/Water (50% Dextrose In Water 50 Ml Syringe) 50 ml IVPUSH Q15M PRN PRN Reason: Hypoglycemia Furosemide (Furosemide 40 Mg Tab) 40 mg PO DAILY [facility] Last Admin: 09/29/21 11:46 Dose: 40 mg Documented by: Glucagon (Glucagon,Human Recombinant 1 Mg Vial) 1 mg IM Q15M PRN PRN Reason: Hypoglycemia Sodium Chloride (Normal Saline) 250 mls @ 25 mls/hr IV ASDIRECTED [facility] Last Admin: 09/28/21 23:18 Dose: 25 mls/hr Documented by: Insulin Glargine (Insulin Glarg,Human.Rec.Analog 100 Unit/Ml) 26 unit SUBCUT DAILY [facility] Last Admin: 09/29/21 09:11 Dose: 26 units Documented by: Insulin Human Lispro (Insulin Lispro 100 Units/Ml 3 Ml Vial) 0 unit SUBCUT WITHMEALSANDBED [facility]; Protocol Last Admin: 09/29/21 17:10 Dose: Not Given Documented by: Non-Formulary Medication (Atorvastatin Calcium [Atorvastatin Calcium]) 80 mg PO DAILY [facility] Non-Formulary Medication (Metoprolol Tartrate) 50 mg PO DAILY [facility] Ondansetron HCl (Ondansetron 4 Mg Tab.Dis) 8 mg PO Q6H PRN PRN Reason: nausea, able to take PO Triamterene/Hydrochlorothiazide (Hydrochlorothiazide/Triamterene 25-37.5 Tab) 1 each PO DAILY [facility] Discontinued Medications Furosemide (Furosemide 40 Mg Tab) 40 mg PO DAILY [facility] Lactated Ringer's (Ringers, Lactated) 1,000 mls @ 125 mls/hr IV .BOLUS ONE Stop: 09/28/21 18:42 Last Admin: 09/28/21 14:35 Dose: 125 mls/hr Documented by: Lidocaine/Epinephrine (Lidocaine 1% With Epinephrine 1:100,000 20 Ml Mdv) 15 ml INJECT ONETIME ONE Stop: 09/28/21 09:11 Last Admin: 09/28/21 09:27 Dose: 15 ml Documented by: Non-Formulary Medication (Pioglitazone [Actos]) 45 mg PO DAILY [facility] Oxymetazoline HCl (Oxymetazoline 0.05% Nasal [place] 30 Ml Bottle) 1 ml TARA ONETIME ONE Stop: 09/28/21 09:12 Last Admin: 09/28/21 09:27 Dose: 1 ml Documented by: - Exam Quality Assessment: Denies: Supplemental Oxygen, DVT Prophylaxis General: Reports: Alert, Oriented, No Acute Distress HEENT: Reports: EOMI Neck: Reports: Supple, No JVD Lungs: Reports: Clear to Auscultation, Normal Respiratory Effort. Denies: Rales, Rhonchi, Rub, Wheezing Cardiovascular: Reports: Irregular Rhythm, Murmurs GI/Abdominal Exam: Soft, Non-Tender (Male) Exam: Deferred Rectal (Males) Exam: Deferred Back Exam: Reports: Normal Inspection, Full Range of Motion Extremities: Normal Range of Motion, Non-Tender, No Pedal Edema, Normal Capillary Refill Skin: Reports: Warm, Dry, Intact Neurological: Reports: No New Focal Deficit Psy/Mental Status: Reports: Normal Affect, Normal Mood *Q Meaningful Use (DIS) - VTE *Q VTE Mechanical Contraindications *Q: Tx/Proc Refused byPt VTE Pharmacological Contraindications *Q: Tx/Proc Refused by Pt VTE Anticoagulation Contraindications: Tx/proc Refused by PT - Stroke *Q Aspirin Contraindications Stroke *Q: Patient Refusal Anticoagulation Contraindications Stroke *Q: TX/PROC Refused by PT Antithrombotic Contraindications Stroke *Q: TX/PROC Refused by PT Statin Contraindications Stroke *Q: TX/PROC Refused by PT Rehabilitation Assessment Contraindication *Q: Tx/proc refused by pt - AMI *Q Aspirin Contraindications AMI *Q: TX/PROC Refused by PT Statin Contraindications AMI *Q: TX/Proc Refused by PT
== END 2021-09-29 20:20 | disposition home or self-care (01) | DRG 663 ==
LOC: DL.ED 08:36 → DL.MS 10:58
PROVIDERS: ADMIT Hospitalist; ATTEND Hospitalist
PROC: 30233N1 Transfusion of Nonautologous Red Blood Cells into Peripheral Vein, Percutaneous Approach (ICD-10-PCS; principal; 2021-09-28)
DX: D62 Acute posthemorrhagic anemia (principal); N17.9 Acute kidney failure, unspecified; N18.4 Chronic kidney disease, stage 4 (severe); E11.22 Type 2 diabetes mellitus with diabetic chronic kidney disease; R04.0 Epistaxis; H54.7 Unspecified visual loss; E78.00 Pure hypercholesterolemia, unspecified; Z20.822 Contact with and (suspected) exposure to COVID-19; Z79.01 Long term (current) use of anticoagulants; Z95.2 Presence of prosthetic heart valve; Z95.0 Presence of cardiac pacemaker; Z79.899 Other long term (current) drug therapy; Z79.82 Long term (current) use of aspirin; Z79.4 Long term (current) use of insulin; Z90.49 Acquired absence of other specified parts of digestive tract; Z28.82 Immunization not carried out because of caregiver refusal
CPT/HCPCS: 36415; 36430; 80048; 80053; 82947; 85018; 85025; 85027; 85610; 86850; 86900; 86901; 86920; 86922; A9270-GY; J1815-GY; J7050; J7120; P9016; U0002

== ENCOUNTER 2022-05-03 13:10 | Emergency (ER) | payer BC, OTHER ==
[2022-05-03 14:03] VITALS: BP 164/68; PULSE 73
[2022-05-03 15:40] LABS: ANION GAP 13.8 mEq/L (7-13)
[2022-05-03] MEDS ORDERED: Furosemide 40 MG/4 ML VIAL IVPUSH ONE (15:54)
== END 2022-05-03 17:20 | disposition home or self-care (01) ==
LOC: DL.ED 13:10
DX: R06.01 Orthopnea (principal); I13.0 Hypertensive heart and chronic kidney disease with heart failure and stage 1 through stage 4 chronic kidney disease, or unspecified chronic kidney disease; E11.22 Type 2 diabetes mellitus with diabetic chronic kidney disease; I50.1 Left ventricular failure, unspecified; N18.9 Chronic kidney disease, unspecified; D63.1 Anemia in chronic kidney disease; R79.0 Abnormal level of blood mineral; E78.00 Pure hypercholesterolemia, unspecified; E66.9 Obesity, unspecified; Z95.0 Presence of cardiac pacemaker; Z79.4 Long term (current) use of insulin; Z79.01 Long term (current) use of anticoagulants; Z79.899 Other long term (current) drug therapy; Z68.28 Body mass index [BMI] 28.0-28.9, adult
CPT/HCPCS: 36415; 71045; 80053; 83880; 84484; 85025; 93005; 96374; 99285-25; J1940

== ENCOUNTER 2022-06-22 13:04 | Emergency (ER) | payer BC, OTHER ==
[2022-06-22 13:57] VITALS: BP 151/64; PULSE 67
== END 2022-06-22 15:38 | disposition left against medical advice (07) ==
LOC: DL.ED 13:04
DX: Z53.21 Procedure and treatment not carried out due to patient leaving prior to being seen by health care provider (principal)

== ENCOUNTER 2023-01-11 14:30 | Emergency (ER) | payer BC, OTHER ==
[2023-01-11 15:18] VITALS: BP 161/68; PULSE 75
[2023-01-11 15:54] LABS: ANION GAP 20.7 mEq/L (7-13)
[2023-01-11 16:12] LABS: CORONAVIRUS COVID-19 NAA NEGATIVE (NEGATIVE); RESPIRATORY SYNCYTIAL VIR NAA NEGATIVE (NEGATIVE)
== END 2023-01-11 16:58 | disposition hospice, home (50) ==
LOC: DL.ED 14:30
DX: J10.1 Influenza due to other identified influenza virus with other respiratory manifestations (principal); R06.02 Shortness of breath; E78.00 Pure hypercholesterolemia, unspecified; I12.9 Hypertensive chronic kidney disease with stage 1 through stage 4 chronic kidney disease, or unspecified chronic kidney disease; E11.22 Type 2 diabetes mellitus with diabetic chronic kidney disease; N18.30 Chronic kidney disease, stage 3 unspecified; E66.9 Obesity, unspecified; Z68.27 Body mass index [BMI] 27.0-27.9, adult; Z79.4 Long term (current) use of insulin; Z79.01 Long term (current) use of anticoagulants; Z79.899 Other long term (current) drug therapy; Z87.891 Personal history of nicotine dependence; Z20.822 Contact with and (suspected) exposure to COVID-19
CPT/HCPCS: 0241U; 36415; 71046; 80053; 83735; 83880; 85025; 99285

== ENCOUNTER 2024-11-01 12:21 | Emergency (ER) | payer BC, OTHER ==
[2024-11-01] MEDS ORDERED: Sodium Chloride 0.9% 10 ML Syringe FLUSH PRN (13:19)
[2024-11-01 13:44] LABS: HEMATOCRIT 38.9 % (40.0-54.0); HEMOGLOBIN 12.7 g/dL (14.0-18.0); MEAN CORPUSCULAR HEMOGLOBIN 34.5 pg (27.0-34.0); MEAN CORPUSCULAR HGB CONC 32.6 g/dL (33.0-35.0); MEAN CORPUSCULAR VOLUME 105.7 fL (80-100); PLATELET COUNT,PLT 259 10^3/uL (150-450); RED BLOOD CELL COUNT 3.68 10^6/uL (4.6-6.2); WHITE BLOOD CELL COUNT,WBC 14.8 10^3/uL (5.0-10.0)
[2024-11-01 14:04] LABS: ALANINE AMINOTRANSFERASE,ALT 63 U/L (16-63); ALBUMIN 4.3 g/dL (3.4-5.0); ALKALINE PHOSPHATASE 82 U/L (46-116); ANION GAP 18.4 mEq/L (7-13); ASPARTATE AMNIOTRANSFERASE,AST 29 U/L (15-37); BILIRUBIN TOTAL 1.2 mg/dL (0.2-1.0); BLOOD UREA NITROGEN,BUN 45 mg/dL (7-18); BUN/CREATININE RATIO 6.2 (No establ ref range); C-REACTIVE PROTEIN 0.72 ng/dL (<=0.50); CALCIUM 9.6 mg/dL (8.5-10.1); CARBON DIOXIDE,CO2 24 mmol/L (21-32); CHLORIDE,CL 101 mmol/L (98-107); GLUCOSE RANDOM 170 mg/dL (70-99); MAGNESIUM 2.3 mg/dL (1.8-2.4); PHOSPHORUS 4.1 mg/dL (2.6-4.7); POTASSIUM,K 5.4 mmol/L (3.5-5.1); PROTEIN TOTAL,TP 8.5 g/dL (6.4-8.2); SODIUM,NA 138 mmol/L (136-145)
[2024-11-01 14:08] LABS: CREATININE 7.28 mg/dL (0.70-1.30); ESTIMATED GFR 8 mL/min (>=60)
[2024-11-01 14:14] LABS: LACTIC ACID 1.8 mmol/L (0.4-2.0)
[2024-11-01 14:16] LABS: B-TYPE NATRIURETIC PEPTIDE,BNP 2220 pg/ml (0-100)
[2024-11-01 14:25] LABS: INR 1.5 (0.9-1.2); PROTHROMBIN TIME 15.5 SEC (9.0-12.0); PTT,PARTIAL THROMBOPLSTIN TIME 27.9 SEC (22.0-34.0)
[2024-11-01 14:34] LABS: ANISOCYTOSIS 1+ SLIGHT; BAND PERCENT MAN 12 %; MONOCYTES PERCENT MAN 2 % (2-8); PLATELET COUNT ESTIMATE ADEQUATE; SEG NEUTROPHILS PERCENT MAN 86 % (42-75)
[2024-11-01] MEDS: Atropine/Diphenoxylate 0.025-2.5 MG Tab PO ONE (17:32)
[2024-11-01 18:27] VITALS: BP 151/58; PULSE 62
== END 2024-11-01 18:51 | disposition home or self-care (01) ==
LOC: DL.ED 12:21
DX: R19.7 Diarrhea, unspecified (principal); I12.9 Hypertensive chronic kidney disease with stage 1 through stage 4 chronic kidney disease, or unspecified chronic kidney disease; N18.9 Chronic kidney disease, unspecified; E11.22 Type 2 diabetes mellitus with diabetic chronic kidney disease; Z86.16 Personal history of COVID-19; Z90.49 Acquired absence of other specified parts of digestive tract; Z87.891 Personal history of nicotine dependence; Z79.01 Long term (current) use of anticoagulants; Z79.899 Other long term (current) drug therapy; Z79.4 Long term (current) use of insulin
CPT/HCPCS: 36415; 71046; 71250; 74176; 80053; 83605; 83735; 83880; 84100; 84145; 85025; 85610; 85730; 86140; 87428-QW; 99283; 99285; A9270-GY

== ENCOUNTER 2024-11-24 15:50 | Emergency (ER) | payer BC, OTHER ==
[2024-11-24] MEDS: Silver Nitrate Applicator Each TOP ONE (16:51)
[2024-11-24] MEDS: Oxymetazoline 0.05% Nasal Spray 30 ML Bottle ONE (16:55)
[2024-11-24] MEDS: Oxymetazoline 0.05% Nasal Spray 30 ML Bottle NAS ONE (17:42)
[2024-11-24 17:46] VITALS: BP 141/53; PULSE 70
== END 2024-11-24 17:35 | disposition home or self-care (01) ==
LOC: DL.ED 15:50
DX: R04.0 Epistaxis (principal); I12.9 Hypertensive chronic kidney disease with stage 1 through stage 4 chronic kidney disease, or unspecified chronic kidney disease; N18.9 Chronic kidney disease, unspecified; E11.22 Type 2 diabetes mellitus with diabetic chronic kidney disease; Z86.16 Personal history of COVID-19; Z90.49 Acquired absence of other specified parts of digestive tract; Z95.2 Presence of prosthetic heart valve; Z79.01 Long term (current) use of anticoagulants; Z79.4 Long term (current) use of insulin; Z79.899 Other long term (current) drug therapy
CPT/HCPCS: 30901; 99283; A9270

== ENCOUNTER 2025-04-09 13:17 | Emergency (ER) | payer BC, OTHER ==
[2025-04-09 14:12] LABS: MEAN CORPUSCULAR HEMOGLOBIN 34.4 pg (27.0-34.0); MEAN CORPUSCULAR HGB CONC 32.4 g/dL (33.0-35.0); MEAN CORPUSCULAR VOLUME 106.3 fL (80-100); PLATELET COUNT,PLT 274 10^3/uL (150-450); RED BLOOD CELL COUNT 1.92 10^6/uL (4.6-6.2); WHITE BLOOD CELL COUNT,WBC 11.2 10^3/uL (5.0-10.0)
[2025-04-09 14:14] LABS: HEMATOCRIT 20.4 % (40.0-54.0)
[2025-04-09 14:15] LABS: HEMOGLOBIN 6.6 g/dL (14.0-18.0)
[2025-04-09 14:28] LABS: PROTHROMBIN TIME 19.8 SEC (9.0-12.0); PTT,PARTIAL THROMBOPLSTIN TIME 37.9 SEC (22.0-34.0)
[2025-04-09 14:35] LABS: ALANINE AMINOTRANSFERASE,ALT 14 U/L (16-63); ALBUMIN 3.2 g/dL (3.4-5.0); ALKALINE PHOSPHATASE 86 U/L (46-116); ANION GAP 17.1 mEq/L (7-13); ASPARTATE AMNIOTRANSFERASE,AST 24 U/L (15-37); BILIRUBIN TOTAL 1.5 mg/dL (0.2-1.0); BLOOD UREA NITROGEN,BUN 76 mg/dL (7-18); CALCIUM 9.7 mg/dL (8.5-10.1); CARBON DIOXIDE,CO2 21 mmol/L (21-32); CHLORIDE,CL 102 mmol/L (98-107); CREATININE 3.31 mg/dL (0.70-1.30); GLUCOSE RANDOM 191 mg/dL (70-99); POTASSIUM,K 5.1 mmol/L (3.5-5.1); PROTEIN TOTAL,TP 6.9 g/dL (6.4-8.2); SODIUM,NA 135 mmol/L (136-145)
[2025-04-09 14:37] LABS: A/G RATIO 0.86; ESTIMATED GFR 19 mL/min (>=60)
[2025-04-09 15:12] VITALS: PULSE 70
[2025-04-09 15:21] LABS: BAND PERCENT MAN 8 %; LYMPHOCYTES PERCENT MAN 9 % (20-50); MONOCYTES PERCENT MAN 8 % (2-8); NRBC MANUAL 1 /100WBC; SEG NEUTROPHILS PERCENT MAN 75 % (42-75)
[2025-04-09 16:38] VITALS: BP 147/55
== END 2025-04-09 16:50 ==
LOC: DL.ED 13:17
DX: D62 Acute posthemorrhagic anemia (principal); R31.9 Hematuria, unspecified; I12.9 Hypertensive chronic kidney disease with stage 1 through stage 4 chronic kidney disease, or unspecified chronic kidney disease; E11.22 Type 2 diabetes mellitus with diabetic chronic kidney disease; N18.9 Chronic kidney disease, unspecified; Z90.49 Acquired absence of other specified parts of digestive tract; Z86.16 Personal history of COVID-19; Z79.899 Other long term (current) drug therapy; Z79.4 Long term (current) use of insulin
CPT/HCPCS: 36415; 36430; 80053; 84484; 85025; 85610; 85730; 86850; 86900; 86901; 86920; 86922; 93005; 99285; P9016

== ENCOUNTER 2025-09-04 19:14 | Emergency (ER) | payer BC, OTHER ==
[2025-09-04 20:07] LABS: BASOPHILS PERCENT AUTO 0.2 % (0.0-1.0); EOSINOPHILS PERCENT AUTO 0.1 % (1.0-3.0); LYMPHOCYTES PERCENT AUTO 10.8 % (20.5-50.1); MONOCYTES PERCENT AUTO 11.8 % (2-8); NEUTROPHILS PERCENT AUTO 77.1 % (42.2-75.2); PLATELET COUNT,PLT 262 10^3/uL (150-450); RED BLOOD CELL COUNT 2.28 10^6/uL (4.6-6.2); WHITE BLOOD CELL COUNT,WBC 13.8 10^3/uL (5.0-10.0)
[2025-09-04 20:19] LABS: B-TYPE NATRIURETIC PEPTIDE,BNP 1420 pg/ml (0-100)
[2025-09-04 20:22] LABS: INR 1.3 (0.9-1.2)
[2025-09-04 20:30] LABS: A/G RATIO 1.00; ALANINE AMINOTRANSFERASE,ALT 10 U/L (16-63); ASPARTATE AMNIOTRANSFERASE,AST 11 U/L (15-37); BILIRUBIN TOTAL 1.3 mg/dL (0.2-1.0); BLOOD UREA NITROGEN,BUN 69 mg/dL (7-18); CARBON DIOXIDE,CO2 22 mmol/L (21-32); CHLORIDE,CL 104 mmol/L (98-107); CREATININE 3.77 mg/dL (0.70-1.30); ESTIMATED GFR 17 mL/min (>=60); GLUCOSE RANDOM 89 mg/dL (70-99); POTASSIUM,K 4.6 mmol/L (3.5-5.1); PROTEIN TOTAL,TP 6.4 g/dL (6.4-8.2); SODIUM,NA 139 mmol/L (136-145)
[2025-09-04 21:26] VITALS: BP 148/56; PULSE 80
[2025-09-04 21:44] LABS: APPEARANCE,URINE CLOUDY (CLEAR); GLUCOSE,URINE NEGATIVE (NEGATIVE); OCCULT BLOOD,URINE MODERATE (NEGATIVE)
[2025-09-04 21:54] LABS: SQUAMOUS EPITHELIAL CELLS,UR RARE /HPF (NOT SEEN)
[2025-09-04] MEDS ORDERED: Take Home: Cephalexin 500 MG Cap, 6 Cap Pack PO ONE (21:57)
== END 2025-09-04 23:33 | disposition home or self-care (01) ==
LOC: DL.ED 19:14
DX: R07.89 Other chest pain (principal); I12.0 Hypertensive chronic kidney disease with stage 5 chronic kidney disease or end stage renal disease; N18.6 End stage renal disease; E11.22 Type 2 diabetes mellitus with diabetic chronic kidney disease; Z86.16 Personal history of COVID-19; Z90.49 Acquired absence of other specified parts of digestive tract; Z95.2 Presence of prosthetic heart valve; Z79.4 Long term (current) use of insulin; Z79.01 Long term (current) use of anticoagulants; Z79.899 Other long term (current) drug therapy; Z99.2 Dependence on renal dialysis
CPT/HCPCS: 36415; 71101; 80053; 81001; 83735; 83880; 84484; 85025; 85610; 87086; 93005; 99284; A9270; 87088; 87186